=== PATIENT | female | born 1955 | race Caucasian/White ===

== ENCOUNTER → 2017-08-12 07:11 | Outpatient (CLI) | payer OTHER, SELFPAY ==
[2017-08-12 10:15] LABS: Absolute Lymphocyte Count 1.54 X10^3/ul (0.83-4.51); Absolute Neutrophil Count 2.1 X10^3/uL (2.0-7.7); Basophil# 0.01 X10^3/uL; Basophil% 0.2 % (0-1); Eosinophil# 0.08 X10^3/uL; Hematocrit 40.8 % (37-47); Hemoglobin 13.3 g/dl (12.0-15.0); Lymphocyte # 1.54 X10^3/ul (4.0); Lymphocyte % 38.2 % (19-41); Mean Corp Hgb Conc 32.6 g/gl (32-36); Mean Corpuscular Hgb 33.1 pg (27.0-32.0); Mean Corpuscular Volume 101.5 fL (81-99); Mean Platelet Vol. 11.4 fl (6.2-12.0); Monocyte# 0.31 X10^3/uL; Monocyte% 7.7 % (0-10); Neutrophil # 2.09 X10^3/uL (2.7-7.7); Neutrophil % 51.9 % (47-70); Platelet Count 199 K/mm3 (150-450); RBC Distribution Width CV 13.4 % (11.6-14.6); RBC Distribution Width SD 49.9 fl (35.1-43.9); Red Blood Count 4.02 M/mm3 (4.2-5.4)
[2017-08-12 10:28] LABS: POSITIVE COUNT NO; POSITIVE DIFFERENTIAL NO; POSITIVE MORPHOLOGY NO
[2017-08-12 10:31] LABS: ALB/GLOB Ratio 1.1 RATIO (0.9-2.4); AST(SGOT) 30 U/L (15-37); Alanine Aminotransfer ALT/SGPT 46 U/L (13-56); Albumin, Serum 3.6 g/dL (3.2-5.0); Alkaline Phosphatase 87 U/L (45-117); Anion Gap 6 (5-15); BUN 12 mg/dL (7-18); BUN/Creat Ratio 17.5 RATIO (10-20); Calcium,Total 8.5 mg/dL (8.5-10.1); Chloride 109 mmol/L (98-107); Cholesterol 176 mg/dL (200); Creatinine, Serum 0.68 mg/dL (0.55-1.02); EST Glomerular Filtration Rate 92 mL/min (>60); Est Glom Filt Rate - Afr Amer 112 mL/min (>60); Globulin 3.2 g/dL (2.2-4.2); Glucose 102 mg/dL (74-106); High Density Lipoprotein 49 mg/dL; Potassium 3.8 mmol/L (3.5-5.1); Protein, Total 6.8 g/dL (6.4-8.2); Sodium Level 142 mmol/L (136-145); Triglycerides 83 mg/dL; Very Low Density Lipoprotein 17 mg/dL (5-40)
[2017-08-13 16:53] LABS: SJOGREN'S Anti-SS-A test < 0.2 AI (0.0-0.9); SJOGREN'S Anti-SS-B test < 0.2 AI (0.0-0.9)
[2017-08-14 16:02] LABS: ANTINUCLEAR ANTIBODIES DIRECT Negative (Negative)
== END ==
PROVIDERS: Family Provider Internal Medicine; PCP Internal Medicine; Visit Provider Internal Medicine Rheumatology
DX: L40.59 Other psoriatic arthropathy (principal); Z79.899 Other long term (current) drug therapy; L40.8 Other psoriasis; M19.079 Primary osteoarthritis, unspecified ankle and foot; F41.9 Anxiety disorder, unspecified; E78.5 Hyperlipidemia, unspecified; J20.9 Acute bronchitis, unspecified
CPT/HCPCS: 36415; 80053; 80061; 85025; 86038; 86235

== ENCOUNTER → 2017-11-04 08:42 | Outpatient (CLI) | payer OTHER, SELFPAY ==
[2017-11-04 10:11] LABS: Absolute Lymphocyte Count 2.07 X10^3/ul (0.83-4.51); Absolute Neutrophil Count 2.5 X10^3/uL (2.0-7.7); Basophil# 0.01 X10^3/uL; Basophil% 0.2 % (0-1); Eosinophil# 0.06 X10^3/uL; Eosinophils% 1.2 % (0-5); Hematocrit 41.8 % (37-47); Hemoglobin 13.8 g/dl (12.0-15.0); Lymphocyte # 2.07 X10^3/ul (4.0); Lymphocyte % 41.6 % (19-41); Mean Corpuscular Hgb 32.9 pg (27.0-32.0); Mean Corpuscular Volume 99.8 fL (81-99); Mean Platelet Vol. 12.2 fl (6.2-12.0); Monocyte# 0.34 X10^3/uL; Monocyte% 6.8 % (0-10); Neutrophil # 2.49 X10^3/uL (2.7-7.7); Neutrophil % 50.2 % (47-70); Platelet Count 178 K/mm3 (150-450); RBC Distribution Width CV 12.7 % (11.6-14.6); RBC Distribution Width SD 46.2 fl (35.1-43.9); Red Blood Count 4.19 M/mm3 (4.2-5.4)
[2017-11-04 10:14] LABS: POSITIVE COUNT NO; POSITIVE DIFFERENTIAL NO; POSITIVE MORPHOLOGY NO
[2017-11-04 10:23] LABS: ALB/GLOB Ratio 1.2 RATIO (0.9-2.4); AST(SGOT) 24 U/L (15-37); Alanine Aminotransfer ALT/SGPT 29 U/L (13-56); Albumin, Serum 3.8 g/dL (3.2-5.0); Alkaline Phosphatase 90 U/L (45-117); Anion Gap 8 (5-15); BUN 12 mg/dL (7-18); BUN/Creat Ratio 15.2 RATIO (10-20); Calcium,Total 8.7 mg/dL (8.5-10.1); Chloride 111 mmol/L (98-107); Creatinine, Serum 0.79 mg/dL (0.55-1.02); EST Glomerular Filtration Rate 78 mL/min (>60); Est Glom Filt Rate - Afr Amer 95 mL/min (>60); Globulin 3.1 g/dL (2.2-4.2); Glucose 105 mg/dL (74-106); Potassium 3.7 mmol/L (3.5-5.1); Protein, Total 6.9 g/dL (6.4-8.2); Sodium Level 144 mmol/L (136-145)
== END ==
PROVIDERS: Family Provider Internal Medicine; PCP Internal Medicine; Visit Provider Internal Medicine Rheumatology
DX: L40.59 Other psoriatic arthropathy (principal); Z79.899 Other long term (current) drug therapy; L40.8 Other psoriasis; M19.079 Primary osteoarthritis, unspecified ankle and foot; F41.9 Anxiety disorder, unspecified; E78.5 Hyperlipidemia, unspecified; J20.9 Acute bronchitis, unspecified
CPT/HCPCS: 36415; 80053; 85025

== ENCOUNTER → 2018-01-27 09:06 | Outpatient (CLI) | payer OTHER, SELFPAY ==
[2018-01-27 10:55] LABS: Absolute Lymphocyte Count 2.19 X10^3/ul (0.83-4.51); Basophil# 0.01 X10^3/uL; Basophil% 0.2 % (0-1); Eosinophil# 0.05 X10^3/uL; Eosinophils% 0.9 % (0-5); Hematocrit 41.9 % (37-47); Hemoglobin 13.8 g/dl (12.0-15.0); Lymphocyte # 2.19 X10^3/ul (4.0); Lymphocyte % 38.8 % (19-41); Mean Corp Hgb Conc 32.9 g/gl (32-36); Mean Corpuscular Hgb 33.4 pg (27.0-32.0); Mean Corpuscular Volume 101.5 fL (81-99); Monocyte% 7.1 % (0-10); Neutrophil # 2.98 X10^3/uL (2.7-7.7); Neutrophil % 52.8 % (47-70); POSITIVE COUNT NO; POSITIVE DIFFERENTIAL NO; POSITIVE MORPHOLOGY NO; Platelet Count 197 K/mm3 (150-450); RBC Distribution Width CV 12.7 % (11.6-14.6); RBC Distribution Width SD 46.9 fl (35.1-43.9); Red Blood Count 4.13 M/mm3 (4.2-5.4); White Blood Count 5.6 K/mm3 (4.4-11.0)
[2018-01-27 11:34] LABS: ALB/GLOB Ratio 1.2 RATIO (0.9-2.4); AST(SGOT) 21 U/L (15-37); Alanine Aminotransfer ALT/SGPT 26 U/L (13-56); Albumin, Serum 3.8 g/dL (3.2-5.0); Alkaline Phosphatase 85 U/L (45-117); Anion Gap 4 (5-15); BUN 13 mg/dL (7-18); Calcium,Total 8.8 mg/dL (8.5-10.1); Chloride 108 mmol/L (98-107); Creatinine, Serum 0.86 mg/dL (0.55-1.02); EST Glomerular Filtration Rate 70 mL/min (>60); Est Glom Filt Rate - Afr Amer 85 mL/min (>60); Globulin 3.1 g/dL (2.2-4.2); Glucose 106 mg/dL (74-106); Potassium 3.9 mmol/L (3.5-5.1); Protein, Total 6.9 g/dL (6.4-8.2); Sodium Level 144 mmol/L (136-145)
== END ==
PROVIDERS: Family Provider Internal Medicine; PCP Internal Medicine; Visit Provider Internal Medicine Rheumatology
DX: L40.59 Other psoriatic arthropathy (principal); Z79.899 Other long term (current) drug therapy; L40.8 Other psoriasis; M19.079 Primary osteoarthritis, unspecified ankle and foot
CPT/HCPCS: 36415; 80053; 85025

== ENCOUNTER → 2018-04-29 08:47 | Outpatient (CLI) | payer OTHER, SELFPAY ==
[2018-04-29 10:17] LABS: Absolute Lymphocyte Count 2.17 X10^3/ul (0.83-4.51); Absolute Neutrophil Count 7.2 X10^3/uL (2.0-7.7); Basophil# 0.02 X10^3/uL; Basophil% 0.2 % (0-1); Eosinophil# 0.11 X10^3/uL; Eosinophils% 1.1 % (0-5); Hematocrit 41.5 % (37-47); Hemoglobin 13.7 g/dl (12.0-15.0); Lymphocyte # 2.17 X10^3/ul (4.0); Mean Corpuscular Hgb 33.2 pg (27.0-32.0); Mean Corpuscular Volume 100.5 fL (81-99); Mean Platelet Vol. 11.3 fl (6.2-12.0); Monocyte# 0.81 X10^3/uL; Monocyte% 7.8 % (0-10); Neutrophil # 7.22 X10^3/uL (2.7-7.7); Neutrophil % 69.7 % (47-70); POSITIVE COUNT NO; POSITIVE DIFFERENTIAL NO; POSITIVE MORPHOLOGY NO; Platelet Count 220 K/mm3 (150-450); RBC Distribution Width CV 12.5 % (11.6-14.6); RBC Distribution Width SD 45.1 fl (35.1-43.9); Red Blood Count 4.13 M/mm3 (4.2-5.4); White Blood Count 10.4 K/mm3 (4.4-11.0)
[2018-04-29 10:37] LABS: AST(SGOT) 17 U/L (15-37); Alanine Aminotransfer ALT/SGPT 30 U/L (13-56); Albumin, Serum 3.7 g/dL (3.2-5.0); Alkaline Phosphatase 96 U/L (45-117); Anion Gap 8 (5-15); BUN 13 mg/dL (7-18); BUN/Creat Ratio 16.5 RATIO (10-20); Calcium,Total 8.7 mg/dL (8.5-10.1); Chloride 108 mmol/L (98-107); Creatinine, Serum 0.79 mg/dL (0.55-1.02); EST Glomerular Filtration Rate 78 mL/min (>60); Est Glom Filt Rate - Afr Amer 95 mL/min (>60); Globulin 3.6 g/dL (2.2-4.2); Glucose 102 mg/dL (74-106); Potassium 4.2 mmol/L (3.5-5.1); Protein, Total 7.3 g/dL (6.4-8.2); Sodium Level 144 mmol/L (136-145)
== END ==
PROVIDERS: Family Provider Internal Medicine; PCP Internal Medicine; Referring Provider Internal Medicine Rheumatology; Visit Provider Internal Medicine Rheumatology
DX: L40.59 Other psoriatic arthropathy (principal); Z79.899 Other long term (current) drug therapy; L40.8 Other psoriasis; M19.079 Primary osteoarthritis, unspecified ankle and foot; F41.9 Anxiety disorder, unspecified; E78.5 Hyperlipidemia, unspecified; J20.9 Acute bronchitis, unspecified
CPT/HCPCS: 36415; 80053; 85025

== ENCOUNTER → 2022-03-05 | Outpatient (CLI) | payer MEDICARE, SELFPAY ==
[2022-03-05 15:29] LABS: Absolute Lymphocyte Count 2.46 X10^3/uL (0.83-4.51); Absolute Neutrophil Count 4.8 X10^3/uL (2.0-7.7); Basophil# 0.04 X10^3/uL; Basophil% 0.5 % (0-1); Eosinophil# 0.12 X10^3/uL; Eosinophils% 1.5 % (0-5); Hematocrit 41.5 % (37-47); Hemoglobin 13.6 g/dL (12.0-15.0); Lymphocyte # 2.46 X10^3/ul (0.83-4.51); Lymphocyte % 30.6 % (19-41); Mean Corp Hgb Conc 32.8 g/dL (32-36); Mean Corpuscular Hgb 31.6 pg (27.0-32.0); Mean Corpuscular Volume 96.5 fL (81-99); Mean Platelet Vol. 11.8 fl (6.2-12.0); Monocyte# 0.62 X10^3/uL; Monocyte% 7.7 % (0-10); NRBC Flagged by Analyzer 0 % (0-5); Neutrophil # 4.77 X10^3/uL (2.7-7.7); Neutrophil % 59.3 % (47-70); Platelet Count 226 K/mm3 (150-450); RBC Distribution Width CV 12.8 % (11.6-14.6); RBC Distribution Width SD 45.5 fl (35.1-43.9)
[2022-03-05 15:32] LABS: Erythrocyte Sedimentation Rate 9 mm/hr (0-30)
[2022-03-05 15:50] LABS: AST(SGOT) 17 U/L (15-37); Alanine Aminotransfer ALT/SGPT 21 U/L (13-56); Albumin, Serum 3.7 g/dL (3.2-5.0); Alkaline Phosphatase 86 U/L (45-117); Anion Gap 5 (5-15); BUN 17 mg/dL (7-18); BUN/Creat Ratio 19.1 RATIO (10-20); CRP 3.47 mg/L (0.0-3.0); Calcium,Total 9.1 mg/dL (8.5-10.1); Chloride 106 mmol/L (98-107); Creatinine, Serum 0.89 mg/dL (0.55-1.02); EST Glomerular Filtration Rate 67 mL/min (>60); Est Glom Filt Rate - Afr Amer 82 mL/min (>60); Globulin 3.6 g/dL (2.2-4.2); Glucose 107 mg/dL (74-106); Potassium 3.7 mmol/L (3.5-5.1); Protein, Total 7.3 g/dL (6.4-8.2); Rheumatoid Factor < 10.0 IU/mL (<15); Sodium Level 142 mmol/L (136-145)
[2022-03-06 08:43] LABS: Hepatitis B Surface Antibody Non-Reactive; Hepatitis B Surface Antigen Non-Reactive (Nonreactive); Hepatitis C Antibody Non-Reactive (Nonreactive)
[2022-03-07 16:10] LABS: ANTINUCLEAR ANTIBODIES DIRECT Negative (Negative)
== END | disposition home or self-care (01) ==
PROVIDERS: PCP Internal Medicine; Referring Provider Internal Medicine Rheumatology; Visit Provider Internal Medicine Rheumatology
DX: L40.59 Other psoriatic arthropathy (principal); Z79.899 Other long term (current) drug therapy; L40.8 Other psoriasis; M79.7 Fibromyalgia; F41.9 Anxiety disorder, unspecified; E78.5 Hyperlipidemia, unspecified; I10 Essential (primary) hypertension; E03.9 Hypothyroidism, unspecified; R42 Dizziness and giddiness
CPT/HCPCS: 36415; 80053; 85025; 85652; 86038; 86140; 86431; 86706; 86803; 87340

== ENCOUNTER → 2022-05-06 | Outpatient (CLI) | payer MEDICARE, SELFPAY ==
[2022-05-06 15:28] LABS: Absolute Lymphocyte Count 2.35 X10^3/uL (0.83-4.51); Absolute Neutrophil Count 3.8 X10^3/uL (2.0-7.7); Basophil# 0.06 X10^3/uL; Basophil% 0.9 % (0-1); Eosinophil# 0.09 X10^3/uL; Eosinophils% 1.3 % (0-5); Hematocrit 40.5 % (37-47); Hemoglobin 13.3 g/dL (12.0-15.0); Lymphocyte # 2.35 X10^3/ul (0.83-4.51); Lymphocyte % 34.3 % (19-41); Mean Corp Hgb Conc 32.8 g/dL (32-36); Mean Corpuscular Hgb 32.4 pg (27.0-32.0); Mean Corpuscular Volume 98.5 fL (81-99); Mean Platelet Vol. 12.1 fl (6.2-12.0); Monocyte# 0.59 X10^3/uL; Monocyte% 8.6 % (0-10); NRBC Flagged by Analyzer 0 % (0-5); Neutrophil # 3.75 X10^3/uL (2.7-7.7); Neutrophil % 54.6 % (47-70); Platelet Count 227 K/mm3 (150-450); RBC Distribution Width CV 13.6 % (11.6-14.6); RBC Distribution Width SD 48.8 fl (35.1-43.9); Red Blood Count 4.11 M/mm3 (4.2-5.4); White Blood Count 6.9 K/mm3 (4.4-11.0)
[2022-05-06 15:56] LABS: ALB/GLOB Ratio 1.1 RATIO (0.9-2.4); AST(SGOT) 18 U/L (15-37); Alanine Aminotransfer ALT/SGPT 23 U/L (13-56); Albumin, Serum 3.7 g/dL (3.2-5.0); Alkaline Phosphatase 77 U/L (45-117); Anion Gap 7 (5-15); BUN 16 mg/dL (7-18); BUN/Creat Ratio 17.5 RATIO (10-20); Calcium,Total 9.2 mg/dL (8.5-10.1); Chloride 105 mmol/L (98-107); Creatinine, Serum 0.91 mg/dL (0.55-1.02); EST Glomerular Filtration Rate 65 mL/min (>60); Est Glom Filt Rate - Afr Amer 79 mL/min (>60); Globulin 3.4 g/dL (2.2-4.2); Glucose 88 mg/dL (74-106); Potassium 3.4 mmol/L (3.5-5.1); Protein, Total 7.1 g/dL (6.4-8.2); Sodium Level 142 mmol/L (136-145)
== END | disposition home or self-care (01) ==
PROVIDERS: PCP Physician Assistant Medical; Referring Provider Internal Medicine Rheumatology; Visit Provider Internal Medicine Rheumatology
DX: L40.59 Other psoriatic arthropathy (principal); Z79.899 Other long term (current) drug therapy; L40.8 Other psoriasis; M79.7 Fibromyalgia; F41.9 Anxiety disorder, unspecified; E78.5 Hyperlipidemia, unspecified; I10 Essential (primary) hypertension; E03.9 Hypothyroidism, unspecified; R42 Dizziness and giddiness
CPT/HCPCS: 36415; 80053; 85025

== ENCOUNTER → 2022-06-25 | Outpatient (CLI) | payer MEDICARE, SELFPAY ==
[2022-06-25 18:05] LABS: Absolute Lymphocyte Count 2.58 X10^3/uL (0.83-4.51); Basophil# 0.03 X10^3/uL; Basophil% 0.4 % (0-1); Eosinophil# 0.17 X10^3/uL; Eosinophils% 2.4 % (0-5); Hematocrit 39.3 % (37-47); Hemoglobin 12.9 g/dL (12.0-15.0); Lymphocyte # 2.58 X10^3/ul (0.83-4.51); Mean Corp Hgb Conc 32.8 g/dL (32-36); Mean Corpuscular Hgb 33.1 pg (27.0-32.0); Mean Corpuscular Volume 100.8 fL (81-99); Mean Platelet Vol. 11.7 fl (6.2-12.0); Monocyte# 0.41 X10^3/uL; Monocyte% 5.7 % (0-10); NRBC Flagged by Analyzer 0 % (0-5); Neutrophil # 3.95 X10^3/uL (2.7-7.7); Neutrophil % 55.2 % (47-70); Platelet Count 242 K/mm3 (150-450); RBC Distribution Width CV 13.4 % (11.6-14.6); RBC Distribution Width SD 49.5 fl (35.1-43.9); White Blood Count 7.2 K/mm3 (4.4-11.0)
[2022-06-25 18:27] LABS: ALB/GLOB Ratio 1.1 RATIO (0.9-2.4); AST(SGOT) 15 U/L (15-37); Alanine Aminotransfer ALT/SGPT 22 U/L (13-56); Albumin, Serum 3.5 g/dL (3.2-5.0); Alkaline Phosphatase 82 U/L (45-117); Anion Gap 5 (5-15); BUN 14 mg/dL (7-18); BUN/Creat Ratio 16.1 RATIO (10-20); Calcium,Total 9.2 mg/dL (8.5-10.1); Chloride 106 mmol/L (98-107); Creatinine, Serum 0.87 mg/dL (0.55-1.02); EST Glomerular Filtration Rate 69 mL/min (>60); Est Glom Filt Rate - Afr Amer 83 mL/min (>60); Globulin 3.1 g/dL (2.2-4.2); Glucose 182 mg/dL (74-106); Potassium 4.2 mmol/L (3.5-5.1); Protein, Total 6.6 g/dL (6.4-8.2); Sodium Level 141 mmol/L (136-145)
== END | disposition home or self-care (01) ==
LOC: MTLAB 14:53
PROVIDERS: PCP Physician Assistant Medical; Referring Provider Internal Medicine Rheumatology; Visit Provider Internal Medicine Rheumatology
DX: L40.59 Other psoriatic arthropathy (principal); L40.8 Other psoriasis; Z79.899 Other long term (current) drug therapy
CPT/HCPCS: 36415; 80053; 85025

== ENCOUNTER → 2022-08-26 | Outpatient (CLI) | payer MEDICARE, SELFPAY ==
[2022-08-26 15:10] LABS: Absolute Lymphocyte Count 1.71 X10^3/uL (0.83-4.51); Absolute Neutrophil Count 3.9 X10^3/uL (2.0-7.7); Basophil# 0.04 X10^3/uL; Basophil% 0.7 % (0-1); Eosinophil# 0.09 X10^3/uL; Eosinophils% 1.5 % (0-5); Hematocrit 40.8 % (37-47); Hemoglobin 13.2 g/dL (12.0-15.0); Lymphocyte # 1.71 X10^3/ul (0.83-4.51); Lymphocyte % 27.8 % (19-41); Mean Corp Hgb Conc 32.4 g/dL (32-36); Mean Corpuscular Hgb 32.9 pg (27.0-32.0); Mean Corpuscular Volume 101.7 fL (81-99); Mean Platelet Vol. 11.5 fl (6.2-12.0); Monocyte# 0.43 X10^3/uL; NRBC Flagged by Analyzer 0.3 % (0-5); Neutrophil # 3.86 X10^3/uL (2.7-7.7); Neutrophil % 62.7 % (47-70); Platelet Count 235 K/mm3 (150-450); RBC Distribution Width CV 13.2 % (11.6-14.6); RBC Distribution Width SD 49.7 fl (35.1-43.9); Red Blood Count 4.01 M/mm3 (4.2-5.4); White Blood Count 6.2 K/mm3 (4.4-11.0)
[2022-08-26 15:35] LABS: AST(SGOT) 16 U/L (15-37); Alanine Aminotransfer ALT/SGPT 23 U/L (13-56); Albumin, Serum 3.6 g/dL (3.2-5.0); Alkaline Phosphatase 74 U/L (45-117); Anion Gap 5 (5-15); BUN 15 mg/dL (7-18); BUN/Creat Ratio 15.9 RATIO (10-20); Calcium,Total 9.9 mg/dL (8.5-10.1); Chloride 105 mmol/L (98-107); Creatinine, Serum 0.94 mg/dL (0.55-1.02); EST Glomerular Filtration Rate 63 mL/min (>60); Est Glom Filt Rate - Afr Amer 76 mL/min (>60); Globulin 3.5 g/dL (2.2-4.2); Glucose 169 mg/dL (74-106); Potassium 4.1 mmol/L (3.5-5.1); Protein, Total 7.1 g/dL (6.4-8.2); Sodium Level 141 mmol/L (136-145)
== END | disposition home or self-care (01) ==
PROVIDERS: PCP Physician Assistant Medical; Visit Provider Internal Medicine Rheumatology
DX: L40.59 Other psoriatic arthropathy (principal); Z79.899 Other long term (current) drug therapy; L40.8 Other psoriasis; M79.7 Fibromyalgia; F41.9 Anxiety disorder, unspecified; E78.5 Hyperlipidemia, unspecified; I10 Essential (primary) hypertension; E03.9 Hypothyroidism, unspecified; R42 Dizziness and giddiness
CPT/HCPCS: 36415; 80053; 85025

== ENCOUNTER → 2022-10-22 | Outpatient (CLI) | payer MEDICARE, SELFPAY ==
[2022-10-22 12:20] LABS: Absolute Lymphocyte Count 2.11 X10^3/uL (0.83-4.51); Absolute Neutrophil Count 4.6 X10^3/uL (2.0-7.7); Basophil# 0.06 X10^3/uL; Basophil% 0.8 % (0-1); Eosinophils% 1.4 % (0-5); Hematocrit 41.6 % (37-47); Hemoglobin 13.6 g/dL (12.0-15.0); Lymphocyte # 2.11 X10^3/ul (0.83-4.51); Lymphocyte % 28.8 % (19-41); Mean Corp Hgb Conc 32.7 g/dL (32-36); Mean Corpuscular Hgb 33.4 pg (27.0-32.0); Mean Corpuscular Volume 102.2 fL (81-99); Mean Platelet Vol. 11.7 fl (6.2-12.0); Monocyte# 0.38 X10^3/uL; Monocyte% 5.2 % (0-10); NRBC Flagged by Analyzer 0 % (0-5); Neutrophil # 4.63 X10^3/uL (2.7-7.7); Neutrophil % 63.3 % (47-70); Platelet Count 249 K/mm3 (150-450); RBC Distribution Width SD 48.8 fl (35.1-43.9); Red Blood Count 4.07 M/mm3 (4.2-5.4); White Blood Count 7.3 K/mm3 (4.4-11.0)
[2022-10-22 12:46] LABS: Albumin, Serum 3.5 g/dL (3.2-5.0); BUN 13 mg/dL (7-18); BUN/Creat Ratio 13.4 RATIO (10-20); Creatinine, Serum 0.97 mg/dL (0.55-1.02); EST Glomerular Filtration Rate 61 mL/min (>60); Est Glom Filt Rate - Afr Amer 74 mL/min (>60); Globulin 3.5 g/dL (2.2-4.2); Glucose 146 mg/dL (74-106)
[2022-10-22 12:47] LABS: AST(SGOT) 17 U/L (15-37); Alanine Aminotransfer ALT/SGPT 25 U/L (13-56); Alkaline Phosphatase 91 U/L (45-117); Anion Gap 6 (5-15); Calcium,Total 9.4 mg/dL (8.5-10.1); Chloride 107 mmol/L (98-107); Potassium 3.4 mmol/L (3.5-5.1); Sodium Level 140 mmol/L (136-145)
== END | disposition home or self-care (01) ==
LOC: MTLAB 10:41
PROVIDERS: PCP Physician Assistant Medical; Referring Provider Internal Medicine Rheumatology; Visit Provider Internal Medicine Rheumatology
DX: L40.59 Other psoriatic arthropathy (principal); Z79.899 Other long term (current) drug therapy
CPT/HCPCS: 36415; 80053; 85025

== ENCOUNTER → 2023-01-07 | Outpatient (CLI) | payer MEDICARE, SELFPAY ==
[2023-01-07 15:16] LABS: Absolute Lymphocyte Count 2.31 X10^3/uL (0.83-4.51); Basophil# 0.04 X10^3/uL; Basophil% 0.5 % (0-1); Eosinophils% 1.2 % (0-5); Hematocrit 41.3 % (37-47); Hemoglobin 13.3 g/dL (12.0-15.0); Lymphocyte # 2.31 X10^3/ul (0.83-4.51); Lymphocyte % 28.8 % (19-41); Mean Corp Hgb Conc 32.2 g/dL (32-36); Mean Corpuscular Hgb 32.8 pg (27.0-32.0); Mean Platelet Vol. 12.1 fl (6.2-12.0); Monocyte% 6.2 % (0-10); NRBC Flagged by Analyzer 0 % (0-5); Neutrophil # 5.04 X10^3/uL (2.7-7.7); Neutrophil % 62.8 % (47-70); Platelet Count 242 K/mm3 (150-450); RBC Distribution Width CV 13.1 % (11.6-14.6); RBC Distribution Width SD 48.2 fl (35.1-43.9); Red Blood Count 4.05 M/mm3 (4.2-5.4)
[2023-01-07 15:35] LABS: AST(SGOT) 23 U/L (15-37); Alanine Aminotransfer ALT/SGPT 24 U/L (13-56); Albumin, Serum 3.6 g/dL (3.2-5.0); Alkaline Phosphatase 92 U/L (45-117); Anion Gap 6 (5-15); BUN 13 mg/dL (7-18); BUN/Creat Ratio 14.6 RATIO (10-20); Calcium,Total 9.1 mg/dL (8.5-10.1); Chloride 108 mmol/L (98-107); Creatinine, Serum 0.89 mg/dL (0.55-1.02); EST Glomerular Filtration Rate 67 mL/min (>60); Est Glom Filt Rate - Afr Amer 81 mL/min (>60); Globulin 3.5 g/dL (2.2-4.2); Glucose 101 mg/dL (74-106); Potassium 3.8 mmol/L (3.5-5.1); Protein, Total 7.1 g/dL (6.4-8.2); Sodium Level 141 mmol/L (136-145)
== END | disposition home or self-care (01) ==
LOC: MTLAB 13:22
PROVIDERS: PCP Physician Assistant Medical; Referring Provider Internal Medicine Rheumatology; Visit Provider Internal Medicine Rheumatology
DX: L40.59 Other psoriatic arthropathy (principal); Z79.899 Other long term (current) drug therapy
CPT/HCPCS: 36415; 80053; 85025

== ENCOUNTER → 2023-04-04 | Outpatient (CLI) | payer MEDICARE, SELFPAY ==
[2023-04-04 10:03] LABS: Absolute Lymphocyte Count 1.38 X10^3/uL (0.83-4.51); Absolute Neutrophil Count 4.7 X10^3/uL (2.0-7.7); Basophil# 0.04 X10^3/uL; Basophil% 0.6 % (0-1); Eosinophil# 0.13 X10^3/uL; Eosinophils% 1.9 % (0-5); Hematocrit 41.5 % (37-47); Hemoglobin 13.2 g/dL (12.0-15.0); Lymphocyte # 1.38 X10^3/ul (0.83-4.51); Lymphocyte % 20.2 % (19-41); Mean Corp Hgb Conc 31.8 g/dL (32-36); Mean Corpuscular Hgb 32.8 pg (27.0-32.0); Mean Platelet Vol. 11.5 fl (6.2-12.0); Monocyte# 0.56 X10^3/uL; Monocyte% 8.2 % (0-10); NRBC Flagged by Analyzer 0 % (0-5); Neutrophil # 4.69 X10^3/uL (2.7-7.7); Neutrophil % 68.8 % (47-70); Platelet Count 228 K/mm3 (150-450); RBC Distribution Width CV 13.5 % (11.6-14.6); RBC Distribution Width SD 50.8 fl (35.1-43.9); Red Blood Count 4.03 M/mm3 (4.2-5.4); White Blood Count 6.8 K/mm3 (4.4-11.0)
[2023-04-04 10:43] LABS: AST(SGOT) 16 U/L (15-37); Alanine Aminotransfer ALT/SGPT 27 U/L (13-56); Albumin, Serum 3.5 g/dL (3.2-5.0); Alkaline Phosphatase 85 U/L (45-117); Anion Gap 2 (5-15); BUN 11 mg/dL (7-18); BUN/Creat Ratio 14.3 RATIO (10-20); Chloride 109 mmol/L (98-107); Creatinine, Serum 0.77 mg/dL (0.55-1.02); EST Glomerular Filtration Rate 79 mL/min (>60); Est Glom Filt Rate - Afr Amer 96 mL/min (>60); Globulin 3.4 g/dL (2.2-4.2); Glucose 130 mg/dL (74-106); Potassium 4.3 mmol/L (3.5-5.1); Protein, Total 6.9 g/dL (6.4-8.2); Sodium Level 141 mmol/L (136-145)
== END | disposition home or self-care (01) ==
LOC: MTLAB 09:16
PROVIDERS: PCP Physician Assistant Medical; Referring Provider Internal Medicine Rheumatology; Visit Provider Internal Medicine Rheumatology
DX: L40.59 Other psoriatic arthropathy (principal); Z79.899 Other long term (current) drug therapy; L40.8 Other psoriasis; M79.7 Fibromyalgia
CPT/HCPCS: 36415; 80053; 85025

== ENCOUNTER → 2023-07-07 | Outpatient (CLI) | payer MEDICARE, SELFPAY ==
--- OUTSIDE RECORDS SUMMARY | 2023-07-07 15:17 | XMS RPT_ITS | CCD ---
Author Name Unknown Address [address] [place] [address] Organization [facility] Care Team Providers Care Liquor Department Manager Name Role Phone WHIT, ANTONIOLUCINA FULTON Unavailable Unavailab le Zarrabi, Nadeen Unavailable Unavailable Abbass, Vicente Unavailable Unavailable Zarrabi, Nadeen Unavailable Unavailable GRETTA, CANDELARIA B Attending Unavailable GRETTA, CANDELARIA B Primary Care Unavailable GRETTA, CANDELARIA B Admitting Unavailable GRETTA, CANDELARIA B Attending Unavailable GRETTA, CANDELARIA B Primary Care Unavailable GRETTA, CANDELARIA B Admitting Unavailable GRETTA, CANDELARIA B Attending Unavailable GRETTA, CANDELARIA B Primary Care Unavailable GRETTA, CANDELARIA B Admitting Unavailable GRETTA, CANDELARIA B Attending Unavailable GRETTA, CANDELARIA B Primary Care Unavailable GRETTA, CANDELARIA B Admitting Unavailable GRETTA, CANDELARIA B Admitting Unavailable GRETTA, CANDELARIA B Attending Unavailable GRETTA, CANDELARIA B Primary Care Unavailable GRETTA, CANDELARIA B Admitting Unavailable GRETTA, CANDELARIA B Attending Unavailable GRETTA, CANDELARIA B Primary Care Unavailable GRETTA, CANDELARIA B Admitting Unavailable GRETTA, CANDELARIA B Attending Unavailable GRETTA, CANDELARIA B Primary Care Unavailable GRETTA, CANDELARIA B Admitting Unavailable RGETTA, CANDELARIA B Attending Unavailable GRETTA, CANDELARIA B Primary Care Unavailable Zarrabi, Nadeen Unavailable Unavailable Gretta, Candelaria Unavailable Unavailable Gretta, Candelaria B Unavailable Unavailable Zarrabi, Nadeen Unavailable Unavailable Bergoo, Candelaria B Unavailable [phone] Unavailable Unavailable Unavailable Unavailable Ms. Kin Glynnhel Janny Referring Unav ailable Gretta, Ms. Candelaria Soliman Primary Care Unav ailable Gretta, Ms. Candelaria Soliman Attending Unav ailable Berg[place], Ms. Candelaria Soliman Referring Unav ailable Gretta, Ms. Candelaria Soliman Primary Care Unav ailable Gretta, Ms. Candelaria Soliman Attending Unav ailable Candelaria Glynn PA-C Primary Care Provider Gretta, Ms. Candelaria Soliman Attending Unav ailjerel Gretta, Ms. Candelaria Soliman Primary Care Unav ailCANDELARIA Coe Primary Care Unavailable CANDELARIA GLYNN Attending Unavailable CANDELARIA GLYNN Primary Care Unavailable CANDELARIA GLYNN Attending Unavailable CANDELARIA GLYNN Primary Care Unavailable Allergies Allergy Classification Reported Allergen(s) Allergy Type Date of Onset Reaction(s) Facility Serotonin-1b and Serotonin-1d Receptor Agonists (1 source) SUMAtriptan; Translations: [Imitrex TABS] Drug Allergy Other [facility] Corporate Work Phone: (1 source) SUMAtriptan; Translations: [Imitrex] Drug Allergy [facility] Repository (16 sources) SUMAtriptan; Translations: [Imitrex TABS] Drug Allergy 08-03-2022 [facility] (2 sources) SUMAtriptan; Translations: [SUMATRIPTAN] Drug Allergy 08-03-2022 [facility] Repository Medications Current Medications Medication Drug Class(es) Dates Sig (Normalized) Sig (Original) amLODIPine 10 mg oral tablet (18 sources) Dihydropyridine Calcium Channel Chip take 1 tablet by mouth once daily amLODIPine (Norvasc) 10 mg tablet Take 1 tablet (10 mg) by mouth once daily. 0 Active Completed/Discontinued Medications Medication Drug Class(es) Dates Sig (Normalized) Sig (Original) 0.8 ml adalimumab 50 mg/ml prefilled syringe (1 source) Tumor Necrosis Factor Chip Humira 40 MG/0.8ML Subcutaneous Prefilled Syringe Kit q2wks. Dr. Barlow. Refills: 0 DO Active amoxicillin 500 mg oral capsule (2 sources) Penicillin-class Antibacterial Start: 02-04-2022 take 1 capsule by mouth three times daily Amoxicillin 500 MG Oral Capsule TAKE 1 CAPSULE BY MOUTH THREE TIMES DAILY UNTIL GONE Quantity: 21 Refills: 0 Ordered: 04-Feb-2022 DO Start : 04-Feb-2022 Complete ascorbic acid 60 mg / beta carotene 5000 unt / copper sulfate 40 mg / dl-alpha tocopheryl acetate 30 unt / sodium selenite 0.04 mg / zinc oxide 40 mg oral tablet (1 source) Vitamin C Start: 11-10-2014 Vitamins/Minerals Oral Tablet Refills: 0 Start : 10-Nov-2014 Active betamethasone 0.5 mg/ml / clotrimazole 10 mg/ml topical cream (1 source) Azole Antifungal, Corticosteroid Start: 04-03-2020 Clotrimazole-Beta methasone 1-0.05 % External Cream APPLY 1 INCH Twice daily PRN rash Quantity: 1 Refills: 1 Candelaria Glynn PA-C Start : 03-Apr-2020 Active 45 GM Tube Eldercaps CAPS (12 sources) Eldercaps CAPS TAKE 1 CAPSULE Daily Quantity: 0 Refills: 0 Ordered: 05-Mar-2021 DO Active Glucosamine Chond Cmp Advanced TABS (8 sources) Glucosamine Cam d Cmp Advanced TABS Quantity: 0 Refills: 0 Ordered: 08-Oct-2021 DO Active omega-3 acid ethyl esters (intermediate) 1000 mg oral capsule (1 source) Fish Oil 1000 MG Oral Capsule Refills: 0 DO Active predniSONE 10 mg oral tablet (2 sources) Start: 03-26-2022 predniSONE 10 MG Oral Tablet Quantity: 30 Refills: 0 Ordered: 26-Mar-2022 DO Start : 26-Mar-2022 Complete Vitamin C TABS (12 sources) Vitamin C TABS TAKE 1 TABLET DAILY. Quantity: 0 Refills: 0 Ordered: 05-Mar-2021 DO Active Vitamin E TABS (12 sources) Vitamin E TABS TAKE 1 TABLET DAILY. Quantity: 0 Refills: 0 Ordered: 05-Mar-2021 DO Active Vitamins/Minerals Oral Tablet (2 sources) Start: 11-10-2014 Vitamins/Minerals Oral Tablet Refills: 0 Start : 10-Nov-2014 Active Problems Active Problems Problem Classification Problem Date Documented Da te Episodic/Chronic Anxiety disorders (20 sources) Anxiety disorder due to a general medical condition; Translations: [Anxiety] Onset: 08-03-2022 08-03-2022 Chronic Anxiety disorders (14 sources) Anxiety disorder due to a general medical condition; Translations: [Anxiety disorder in conditions classified elsewhere] Onset: 08-03-2022 08-03-2022 Episodic Conditions associated with dizziness or vertigo (1 source) Dizziness and giddiness; Translations: [Dizziness and giddiness] Onset: 10-15-2017 Episodic Conditions associated with dizziness or vertigo (3 sources) Conditions associated with dizziness or vertigo Onset: 10-15-2017 Diabetes mellitus with complications (7 sources) Type 2 diabetes mellitus; Translations: [Diabetes mellitus without mention of complication, type II or unspecified type, not stated as uncontrolled] Onset: 08-03-2022 10-07-2022 Chronic Disorders of lipid metabolism (20 sources) Hypertriglyceridemi a; Translations: [Hypercholesterolem ia] Onset: 08-03-2022 Resolved: 10-07-2022 10-07-2022 Chronic Essential hypertension (19 sources) Benign essential hypertension; Translations: [Benign essential hypertension] Onset: 08-03-2022 10-07-2022 Chronic Headache; including migraine (17 sources) Migraine; Translations: [Migraine, unspecified, without mention of intractable migraine without mention of status migrainosus] Onset: 08-03-2022 08-03-2022 Chronic Immunizations and screening for infectious disease (20 sources) Patient encounter status; Translations: [Other specified vaccination] 10-07-2022 Episodic Joint disorders and dislocations; trauma-related (19 sources) Ankle - recurrent dislocation; Translations: [Recurrent dislocation of joint, ankle and foot] Onset: 08-03-2022 08-03-2022 Episodic Malaise and fatigue (20 sources) Malaise and fatigue; Translations: [Other malaise and fatigue] Onset: 08-03-2022 10-07-2022 Episodic Other inflammatory condition of skin (11 sources) Psoriasis with arthropathy; Translations: [Psoriatic arthropathy] Onset: 08-03-2022 08-03-2022 Chronic Past or Other Problems Problem Classification Problem Date Documented Da te Episodic/Chronic Administrative/social admission (2 sources) Other specified counseling; Translations: [Other specified counseling] Onset: 10-07-2022 Episodic Diabetes mellitus without complication (20 sources) Hyperglycemia; Translations: [Impaired glucose tolerance] Onset: 08-03-2022 Resolved: 10-07-2022 10-07-2022 Episodic Nutritional deficiencies (17 sources) Decreased vitamin B12 level; Translations: [Other B-complex deficiencies] Onset: 08-03-2022 10-07-2022 Episodic Other nutritional; endocrine; and metabolic disorders (16 sources) Overweight; Translations: [Overweight] Onset: 08-03-2022 10-07-2022 Episodic Other nutritional; endocrine; and metabolic disorders (1 source) Overweight; Translations: [Overweight] Onset: 08-03-2022 Episodic Other skin disorders (15 sources) Eruption; Translations: [Rash and other nonspecific skin eruption] Onset: 08-03-2022 Resolved: 10-07-2022 10-07-2022 Episodic Other skin disorders (4 sources) Nonscarring hair loss, unspecified; Translations: [Nonscarring hair loss, unspecified] Onset: 10-07-2022 Episodic Residual codes; unclassified (13 sources) Influenza vaccination declined; Translations: [Vaccination not carried out because of patient refusal] Onset: 03-05-2021 Episodic Results Test Name Value Interpretation Reference Range Facil ity Vital Signs Date Time Vital Sign Value Performing Clinician Faci lity 10-07-2022 12:42-0400 Body mass index (BMI) [Ratio] 27.41 kg/m2 Candelaria Glynn PA-C Work Phone: [facility] 10-07-2022 12:42-0400 Body weight 86.64 kg Candelaria Glynn PA-C Work Phone: [facility] 10-07-2022 12:42-0400 Diastolic blood pressure 73 mm[Hg] Candelaria Glynn PA-C Work Phone: [facility] 10-07-2022 12:42-0400 Heart rate 67 /min Candelaria Glynn PA-C Work Phone: [facility] 10-07-2022 12:42-0400 SaO2% (BldA) [Mass fraction] 97 % Candelaria Glynn PA-C Work Phone: [facility] 10-07-2022 12:42-0400 Systolic blood pressure 114 mm[Hg] Candelaria MATAC Work Phone: [facility] 04-08-2022 12:40-0400 Body height 177.8 cm Candelaria Glynn Work Phone: [facility] Work Phone: 04-08-2022 12:40-0400 Body mass index (BMI) [Ratio] 27.26 kg/m2 Candelaria Glynn Work Phone: [facility] Work Phone: 04-08-2022 12:40-0400 Body surface area Derived from formula 2.04 m2 Candelaria Kristine Gretta Work Phone: [facility] Work Phone: 04-08-2022 12:40-0400 Body weight 86.18 kg Candelaria Glynn Work Phone: [facility] Work Phone: 04-08-2022 12:40-0400 Diastolic blood pressure 63 mm[Hg] Candelaria Glynn Work Phone: [facility] Work Phone: 04-08-2022 12:40-0400 Heart rate 69 /min Candelaria Glynn Work Phone: [facility] Work Phone: 04-08-2022 12:40-0400 Systolic blood pressure 118 mm[Hg] Candelaria Glynn Work Phone: [facility] Work Phone: 10-08-2021 12:58-0400 Body height 177.8 cm Candelaria Glynn Work Phone: [facility] Work Phone: 10-08-2021 12:58-0400 Body mass index (BMI) [Ratio] 26.98 kg/m2 Candelaria Glynn Work Phone: [facility] Work Phone: 10-08-2021 12:58-0400 Body surface area Derived from formula 2.03 m2 Candelaria Glynn Work Phone: [facility] Work Phone: 10-08-2021 12:58-0400 Body weight 85.28 kg Candelaria Glynn Work Phone: [facility] Work Phone: 10-08-2021 12:58-0400 Diastolic blood pressure 70 mm[Hg] Candelaria Glynn Work Phone: [facility] Work Phone: 10-08-2021 12:58-0400 Heart rate 71 /min Candelaria Glynn Work Phone: [facility] Work Phone: 10-08-2021 12:58-0400 SaO2% (BldA) [Mass fraction] 100 % Candelaria Glynn Work Phone: [facility] Work Phone: 10-08-2021 12:58-0400 Systolic blood pressure 130 mm[Hg] Candelaria Glynn Work Phone: [facility] Work Phone: 03-05-2021 09:18-0400 Body height 177.8 cm Candelaria Glynn Work Phone: [facility] Work Phone: 03-05-2021 09:18-0400 Body mass index (BMI) [Ratio] 27.69 kg/m2 Candelaria Glynn Work Phone: [facility] Work Phone: 03-05-2021 09:18-0400 Body surface area Derived from formula 2.06 m2 Candelaria Glynn Work Phone: [facility] Work Phone: 03-05-2021 09:18-0400 Body weight 87.54 kg Candelaria Glynn Work Phone: [facility] Work Phone: 03-05-2021 09:18-0400 Diastolic blood pressure 72 mm[Hg] Candelaria Glynn Work Phone: [facility] Work Phone: 03-05-2021 09:18-0400 Heart rate 72 /min Candelaria Glynn Work Phone: [facility] Work Phone: 03-05-2021 09:18-0400 Systolic blood pressure 124 mm[Hg] Candelaria Glynn Work Phone: [facility] Work Phone: 04-03-2020 14:45-0400 BMI (Body Mass Index) 27.55 kg/m2 Candelaria Glynn [facility] Work Phone: 04-03-2020 14:45-0400 Body weight 87.[address] [facility] Work Phone: 04-03-2020 14:45-0400 BP Diastolic 80 mm[Hg] Candelaria Glynn [facility] Work Phone: 04-03-2020 14:45-0400 BP Systolic 148 mm[Hg] Candelaria Glynn [facility] Work Phone: 04-03-2020 14:45-0400 BSA (Body Surface Area) 2.[address] [facility] Work Phone: 04-03-2020 14:45-0400 Height 177.[address] [facility] Work Phone: 04-03-2020 14:45-0400 Pulse (Heart Rate) 68 /min Candelaria Glynn [facility] Work Phone: Encounters Encounter Date Encounter Type Care Provider Facility Start: 04-14-2023 End: 04-14-2023 ambulatory CANDELARIA [facility] Start: 04-04-2023 End: 04-05-2023 ambulatory [facility] Start: 10-10-2022 ambulatory Ms. Candelaria alvarado [place] Facility:[id number] Start: 10-07-2022 End: 10-07-2022 ambulatory CANDELARIA B [facility] Start: 10-07-2022 End: 10-07-2022 Encounter for general adult medical examination without abnormal findings [facility] Start: 10-07-2022 End: 10-07-2022 Assay of hemosiderin, quant Candelaria Glynn PA-C Work Phone: [facility] Work Phone: Start: 10-07-2022 End: 10-07-2022 Patient encounter procedure Candelaria Glynn PA-C Work Phone: [facility] Procedures Date Procedure Procedure Detail Performing Clinician Start: 04-04-2023 CBC W Auto Differential panel - Blood CANDELARIA GLYNN Start: 04-04-2023 Comprehensive metabolic 2000 panel - Serum or Plasma CANDELARIA GLYNN Start: 04-04-2023 Cyanocobalamin vitamin b-12 CANDELARIA GLYNN Start: 04-04-2023 Ferritin [Mass/volume] in Serum or Plasma CANDELARIA GLYNN Start: 04-04-2023 Hemoglobin A1c/Hemoglobin.total in Blood CANDELARIA GLYNN Start: 04-04-2023 IRON AND TIBC CANDELARIA GLYNN Start: 04-04-2023 Magnesium [Mass/volume] in Serum or Plasma CANDELARIA GLYNN Start: 04-04-2023 Thyrotropin [Units/volume] in Serum or Plasma CANDELARIA GLYNN Start: 04-04-2023 THYROXINE, FREE CANDELARIA GLYNN Start: 10-07-2022 BI MAMMO BILATERAL SCREENING TOMOSYNTHESIS CANDELARIA GLYNN Start: 09-27-2022 Lipid 1996 panel - Serum or Plasma Candelaria Glynn PA-C Work Phone: Start: 09-27-2022 Thyrotropin [Units/volume] in Serum or Plasma Candelaria Glynn PA-C Work Phone: Start: 08-03-2022 Vaccine refused by patient Immunization not carried out because of patient refusal Candelaria Glynn PA-C Work Phone: Start: 03-19-2021 Mammography Candelaria Glynn PA-C Work Phone: Start: 04-03-2020 Comprehensive metabolic 2000 panel Candelaria Glynn Start: 04-03-2020 Cyanocobalamin vitamin b-12 Candelaria Glynn Start: 04-03-2020 Hemoglobin glycosylated a1c Candelaria Glynn Start: 04-03-2020 Lipid panel Candelaria Glynn Start: 04-03-2020 OPIATE/OPIOID/BENZO [EXTENDED] PRESCRIPTION COMPLIANCE Candelaria Glynn Start: 09-27-2019 Assay of ferritin Candelaria Glynn Start: 09-27-2019 Assay of folic acid serum Candelaria gama Start: 09-27-2019 Assay of iron Candelaria Glynn Start: 09-27-2019 Blood count complete auto&auto difrntl wbc Candelaria Glynn Start: 09-27-2019 Comprehensive metabolic 2000 panel Candelaria Glynn Start: 09-27-2019 Cyanocobalamin vitamin b-12 Candelaria Glynn Start: 09-27-2019 Hemoglobin glycosylated a1c Candelaria Glynn Start: 09-27-2019 MG Breast screening Candelaria Glynn Start: 10-04-2017 Iv infusion hydration each additional hour ANTONIO SHERMAN Start: 10-04-2017 Ther proph/dx njx iv push single/1st sbst/drug ANTONIO SHERMAN Start: 06-23-1975 Extraction of wisdom tooth Candelaria Glynn Work Phone: Plan of Treatment Date Care Activity Detail Author Start: 09-28-2023 Lipid panel Lipid Panel [facility] Start: 09-28-2023 Thyroid stimulating hormone measurement TSH Level [facility] Start: 09-28-2023 Urine screening for protein Diabetes: Urine Protein Screening [facility] Start: 04-14-2023 End: 04-14-2023 Patient encounter procedure 04/14/2023 12:40 PM EDT Office Visit [facility] [address] [place] [id number] Candelaria Glynn PA-C [address] [place] [address] [facility] Start: 04-08-2023 End: 10-08-2023 CBC W Auto Differential panel - Blood CBC and Auto Differential Lab Routine Type 2 diabetes mellitus with hyperglycemia, without long-term current use of insulin ([facility]) Expected: 04/08/2023 (Approximate), Expires: 10/08/2023 [facility] Service Area Work Phone: Immunizations Immunization Date Immunization Notes Care Provider Kalyani montero 10-05-2021 Moderna COVID-19 Vaccine 100 MCG/0.5ML Intramuscular Suspension Candelaria Glynn Work Phone: [facility] 05-08-2021 Moderna COVID-19 Vaccine 100 MCG/0.5ML Intramuscular Suspension Candelaria Glynn Work Phone: [facility] 09-21-2020 Pfizer-BioNTech COVID-19 Vacc 30 MCG/0.3ML Intramuscular Suspension Candelaria Glynn Work Phone: [facility] Work Phone: Payers Date Payer Category Payer Medicare [employer]ARE HMO [id number] 2022-Present [address] [place] [address] [id number] 2022 Private Health Insurance [id number] 2017 Private Health Insurance 1954 Unknown [id number] 1954 Unknown [id number] 1954 Unknown [id number] 1954 Unknown [id number] 1954 Unknown [id number] 1954 Unknown [id number] 1954 Unknown [id number] 1954 Unknown [id number] 1954 Unknown [id number] 1954 Unknown [id number] Private Health Insurance [id number] Private Health Insurance [id number] Unknown Social History Date Type Detail Facility Start: 10-07-2022 Consumes alcohol Consumes alcohol [facility] Work Phone: Functional Status Date Assessment Result Facility NEGATED: Highlighted row Functional performance Functional status health issues are not documented Disease [facility] Work Phone: Mental Status Date Assessment Result Facility NEGATED: Highlighted row Cognitive function [Interpretation] Cognitive status health issues are not documented Disease [facility] Work Phone: Clinical Notes 10-07-2022 Assessment & Plan Note - Candelaria Glynn PA-C - 10/07/2022 1:14 PM EDTAssessment & Plan Note - Candelaria Glynn PA-C - 10/07/2022 1:14 PM EDT Note Date & Type Note Facility 10-07-2022 Evaluation + Plan note Associated Problem(s): Hypercholesterolemia Stable on fibrate [facility] Work Phone: 10-07-2022 Miscellaneous Notes Associated Problem(s): Hypercholesterolemia Stable on fibrate Associated Problem(s): Low vitamin B12 level Stable with supplement every other day Associated Problem(s): Type 2 diabetes mellitus with hyperglycemia, without long-term current use of insulin (CMS/HCC) Stable with diet and ex Associated Problem(s): Hypothyroidism Stable on meds Associated Problem(s): Benign essential hypertension Stable on meds documented in this encounter [facility] Work Phone: 10-07-2022 Evaluation + Plan note Associated Problem(s): Low vitamin B12 level Stable with supplement every other day [facility] Work Phone: 10-07-2022 Evaluation + Plan note Associated Problem(s): Type 2 diabetes mellitus with hyperglycemia, without long-term current use of insulin (CMS/HCC) Stable with diet and ex [facility] Work Phone: 10-07-2022 Evaluation + Plan note Associated Problem(s): Hypothyroidism Stable on meds [facility] Work Phone: 10-07-2022 Evaluation + Plan note Associated Problem(s): Benign essential hypertension Stable on meds [facility] Work Phone: 10-07-2022 History of Present illness Narrative Subjective Reason for Visit: Lizandro Meza is an 67 y.o. female here for a Medicare Wellness visit. Past Medical, Surgical, and Family History reviewed and updated in chart. Reviewed all medications by prescribing practitioner or clinical pharmacist (such as prescriptions, OTCs, herbal therapies and supplements) and documented in the medical record. Advanced Care Planning Diagnosis, treatment and prognosis discussed with patient. Patient has capacity to make his/her own decision. Patient DOES NOT have a living will. Patient is advised to set one up and bring a copy of this documenation for the chart. HPI Subsequent medicare wellness Review labs Med check hyperchol - taking fenobrate folic acid - recent restarted with rheum mood - ativan prn HTN -on meds psoriatic arthritis - following with RA dr Ralf delgadillo on methotrexate, folate and prednisone (prednisone is only for flares and has not taken at this time) season allergies /fluid in the ear - stable on lasix ENT dr krishnamurthy in [place] - pt states was told more menieres and fluids and really couldn't help her preventative testing mammo - feb 2021 cologuard - summer 2020 - NEG DEXA - feb 2021- WNl PAP - november 2017 -declines Depression - PHQ2 NEG September 2022 Fall - Neg September 2022 Advanced Care Patient Care Team: Candelaria Glynn PA-C as PCP - General Review of Systems Constitutional: Positive for fatigue. Negative for chills and fever. HENT: Positive for ear pain. Negative for congestion, rhinorrhea, sinus pain, sore throat and tinnitus. Eyes: Negative for discharge, redness and visual disturbance. Respiratory: Negative for cough, chest tightness, shortness of breath and wheezing. Cardiovascular: Negative for chest pain, palpitations and leg swelling. Gastrointestinal: Negative for abdominal pain, constipation, diarrhea, nausea and vomiting. Endocrine: Negative for cold intolerance and heat intolerance. Hair loss Genitourinary: Negative for flank pain, frequency and urgency. Musculoskeletal: Positive for arthralgias. Negative for back pain, gait problem and neck pain. Skin: Negative for rash and wound. Neurological: Negative for dizziness, tremors, syncope, numbness and headaches. Hematological: Does not bruise/bleed easily. Psychiatric/Behavioral: Negative for confusion, sleep disturbance and suicidal ideas. Objective Vitals: BP 114/73 (BP Location: Left arm, Patient Position: Sitting) Pulse 67 Wt 86.6 kg (191 lb) SpO2 97% BMI 27.41 kg/m Physical Exam Constitutional: Appearance: Normal appearance. HENT: Head: Normocephalic. Right Ear: External ear normal. Left Ear: External ear normal. Nose: Nose normal. No congestion or rhinorrhea. Mouth/Throat: Mouth: Mucous membranes are moist. Eyes: Extraocular Movements: Extraocular movements intact. Conjunctiva/sclera: Conjunctivae normal. Pupils: Pupils are equal, round, and reactive to light. Cardiovascular: Rate and Rhythm: Normal rate and regular rhythm. Pulses: Normal pulses. Pulmonary: Effort: Pulmonary effort is normal. Breath sounds: Normal breath sounds. Abdominal: General: Bowel sounds are normal. Palpations: Abdomen is soft. Tenderness: There is no abdominal tenderness. There is no right CVA tenderness or left CVA tenderness. Musculoskeletal: General: No tenderness. Normal range of motion. Cervical back: Normal range of motion. Rigidity present. No tenderness. Skin: General: Skin is warm and dry. Neurological: General: No focal deficit present. Mental Status: She is alert and oriented to person, place, and time. Psychiatric: Mood and Affect: Mood normal. Behavior: Behavior normal. Testing Component Latest Ref Rng 09/27/2022 WBC 4.4 - 11.3 x10E9/L 5.9 RBC 4.00 - 5.20 x10E12/L 4.04 HEMOGLOBIN 12.0 - 16.0 g/dL 13.1 HEMATOCRIT 36.0 - 46.0 % 41.1 MCV 80 - 100 fL 102 (H) MCHC 32.0 - 36.0 g/dL 31.9 (L) Platelets 150 - 450 x10E9/L 231 RED CELL DISTRIBUTION WIDTH 11.5 - 14.5 % 13.4 Neutrophils % 40.0 - 80.0 % 59.8 Immature Granulocytes %, Automated 0.0 - 0.9 % 0.3 Lymphocytes % 13.0 - 44.0 % 29.0 Monocytes % 2.0 - 10.0 % 7.7 Eosinophils % 0.0 - 6.0 % 2.7 Basophils % 0.0 - 2.0 % 0.5 Neutrophils Absolute 1.20 - 7.70 x10E9/L 3.50 Lymphocytes Absolute 1.20 - 4.80 x10E9/L 1.70 Monocytes Absolute 0.10 - 1.00 x10E9/L 0.45 Eosinophils Absolute 0.00 - 0.70 x10E9/L 0.16 Basophils Absolute 0.00 - 0.10 x10E9/L 0.03 GLUCOSE 74 - 99 mg/dL 135 (H) SODIUM 136 - 145 mmol/L 144 POTASSIUM 3.5 - 5.3 mmol/L 4.1 CHLORIDE 98 - 107 mmol/L 108 (H) Bicarbonate 21 - 32 mmol/L 31 Anion Gap 10 - 20 mmol/L 9 (L) Blood Urea Nitrogen 6 - 23 mg/dL 12 Creatinine 0.50 - 1.05 mg/dL 0.77 GFR Female >90 mL/min/1.73m2 84 Calcium 8.6 - 10.3 mg/dL 9.3 Albumin 3.4 - 5.0 g/dL 4.0 Alkaline Phosphatase 33 - 136 U/L 67 Total Protein 6.4 - 8.2 g/dL 6.4 AST 9 - 39 U/L 15 Bilirubin Total 0.0 - 1.2 mg/dL 0.5 ALT 7 - 45 U/L 13 CHOLESTEROL 0 - 199 mg/dL 181 HDL CHOLESTEROL mg/dL 46.0 Cholesterol/HDL Ratio 3.9 LDL 0 - 99 mg/dL 112 (H) VLDL 0 - 40 mg/dL 23 TRIGLYCERIDES 0 - 149 mg/dL 117 ALBUMIN (MG/L) IN URINE Not Established mg/L <7.0 Albumin/Creatine Ratio 0.0 - 30.0 ug/mg spot checker SEE COMMENT Creatinine, Urine Random 20.0 - 320.0 mg/dL 144.0 Hemoglobin A1C % 6.4 ! Estimated Average Glucose MG/DL 137 Thyroxine, Free 0.61 - 1.12 ng/dL 0.96 Vitamin B12 211 - 911 pg/mL 419 Thyroid Stimulating Hormone 0.44 - 3.98 mIU/L 2.37 Assessment/Plan Problem List Items Addressed This Visit Circulatory Benign essential hypertension Current Assessment & Plan Stable on meds Musculoskeletal Bilateral lower extremity edema Relevant Medications furosemide (Lasix) 20 mg tablet Endocrine/Metabolic Hypothyroidism Current Assessment & Plan Stable on meds Relevant Orders Thyroid Stimulating Hormone Thyroxine, Free Type 2 diabetes mellitus with hyperglycemia, without long-term current use of insulin ([facility]) Current Assessment & Plan Stable with diet and ex Relevant Orders CBC and Auto Differential Comprehensive Metabolic Panel Hemoglobin A1C Thyroid Stimulating Hormone Thyroxine, Free Iron and TIBC Ferritin Magnesium Vitamin B12 Overweight Overview Overweight Hematologic Low vitamin B12 level Current Assessment & Plan Stable with supplement every other day Relevant Orders Vitamin B12 Other Hypercholesterolemia Current Assessment & Plan Stable on fibrate Other malaise Overview Malaise and fatigue Relevant Orders Iron and TIBC Ferritin Other Visit Diagnoses Medicare annual wellness visit, subsequent - Primary Hair loss Relevant Orders Iron and TIBC Ferritin Encounter for screening mammogram for breast cancer Relevant Orders BI mammo bilateral screening tomosynthesis Advanced care planning/counseling discussion Routine general medical examination at health care facility Will start lasix daily x 3-4 weeks and re-eval to see if this better helps with chronic LE edema and the meniere's symptoms - monitor for symptoms of low K fU in 6 mo with labs at [facility] fasting and med check Mammo documented in this encounter [facility] Work Phone: documented in this encounter [facility] Work Phone: History of Present illness Narrative* Patient presents today for.... * 1 to Review labs * 2 Med check * hyperchol - taking fenobrate * folic acid - has stopped * mood - ativan prn * HTN -on meds * psoriatic arthritis - denies taking her meds at this time - currently not following with RA dr Ralf Patel d/t insurance issues * 3 ankle LE edema x few months and getting worse * pt denies any change in diet and activity * she is working from home and so maybe she is sitting more * 4 preventative testing * mammo - jan 2020- agreeable to schedule * cologuard - summer 2020 - NEG * DEXA - agreeable to schedule * PAP - november 2017 -declines * OARRS Report Last Screening Date: 03/05/2021 * I have personally reviewed the OARRS report for LIZANDRO MEZA. I have considered the risks of abuse, dependence, addiction and diversion. * Last urine drug screening date/ordered today: 10/02/2020 * Date of the last Controlled Substance Agreement: 03/05/2021 -[facility] Work Phone: History of Present illness Narrative* The patient is being seen for the subsequent annual wellness visit. * Past Medical, Surgical and Family History: reviewed and updated in chart. * Medications and Supplements: Review of all medications by a prescribing practitioner or clinical pharmacist (such as prescriptions, OTCs, herbal therapies and supplements) documented in the medical record. * No, the patient is not using opioids. * Patient Self Assessment of Health Status: excellent. * Tobacco use: Non-User * Alcohol use: Non-User * Illicit drug use: Non-User * Current diet: well balanced diet, does consume adequate fluids and does consume caffeine. * Exercise Frequency: infrequently. * Depression/Suicide Screening: . * During the past 2 weeks, the patient has not felt down, depressed or hopeless. * During the past 2 weeks, the patient has not felt little interest or pleasure in doing things. * Hearing Impairment: none. * Cognitive Impairment: No cognitive impairment observed, patient or family reported no cognitive impairment. * Bathing: performs independently. * Dressing: performs independently. * Walking: performs independently. * Toileting: performs independently. * Feeding: performs independently. * Personal Hygiene: performs independently. * Managing Finances: performs independently. * Shopping: performs independently. * Managing Medications: performs independently. * Housework / Basic Home Maintenance: performs independently. * Handling Transportation: performs independently. * Preparing Meals: performs independently. * Using the Telephone/ Communication Devices: performs independently. * Falls Risk Screening:. LIZANDRO has not fallen in the last 6 months. * Home safety risk factors: no grab bars in the bathroom. * Advance directives:. Advance Care Planning discussed and documented in the medical record, patient did not wish or was not able to name a surrogate decision maker or provide an advance care plan. Patient has no living will. Patient has no healthcare POA. * Patient presents today for.... * 1 subsequent Medicare Wellness * 2 to Review labs * 3 Med check * hyperchol - taking fenobrate * folic acid - has stopped * mood - ativan prn * HTN -on meds * psoriatic arthritis - denies taking her meds at this time - currently not following with RA dr Ralf Patel d/t insurance issues * 3 ankle LE edema x few months and getting worse * pt denies any change in diet and activity * she is working from home and so maybe she is sitting more * 4 preventative testing * mammo - feb 2021 * cologuard - summer 2020 - NEG * DEXA - feb 2021- WNl * PAP - november 2017 -declines * Depression - PHQ2 NEG September 2021 * [facility] * Initial Fall Risk Screening: * LIZANDRO has not fallen in the last 6 months. * Pain Scale: On a scale of 0 to 10, the patient rates the pain at 3. * Please identify location of pain: knees/hands. * Pain Quality: aching. * The pain makes it hard for the patient to do these things: sleep. * Tobacco Screening: LIZANDRO does not use tobacco. * Diabetes Evaluation: * HbA1c < 7%. * Blood Pressure monitoring * Blood Pressure Controlled, Systolic = 130-139 mm Hg * OARRS Report Last Screening Date: 10/08/2021 * I have personally reviewed the OARRS report for LIZANDRO MEZA. I have considered the risks of abuse, dependence, addiction and diversion. * Last urine drug screening date/ordered today: 10/08/2021 * Date of the last Controlled Substance Agreement: 03/05/2021 -[facility] Work Phone: History of Present illness Narrative* Patient presents today for.... * 1 subsequent Medicare Wellness * 2 to Review labs * 3 Med check * hyperchol - taking fenobrate * folic acid - has stopped * mood - ativan prn * HTN -on meds * psoriatic arthritis - denies taking her meds at this time - currently not following with RA dr Ralf vera/t insurance issues - she did follow back with her in the last few weeks and has re-started on methotrexate, folate and prednisone (prednisone is only for flares and has not taken at this time) * season allergies /fluid in the ear - stable on lasix * ENT dr krishnamurthy in [facility] states was told more menieres and fluids and really couldn't help her * 4 preventative testing * mammo - feb 2021 * cologuard - summer 2020 - NEG * DEXA - feb 2021- WNl * PAP - november 2017 -declines * Depression - PHQ2 NEG September 2021 * [facility] * OARRS Report Last Screening Date: 10/08/2021 * I have personally reviewed the OARRS report for LIZANDRO MEZA. I have considered the risks of abuse, dependence, addiction and diversion. * Last urine drug screening date/ordered today: 10/08/2021 * Date of the last Controlled Substance Agreement: 04/08/2022 -[facility] Work Phone: History of Present illness Narrative* Patient presents today for.... * 1 to Review labs * 2 Med check * hyperchol - taking fenobrate * folic acid - recent restarted with rheum * mood - ativan prn * HTN -on meds * psoriatic arthritis - previously was off meds and not following with RA dr Ralf nick insurance issues - she did follow back with her in the last few weeks and has re-started on methotrexate, folate and prednisone (prednisone is only for flares and has not taken at this time) * season allergies /fluid in the ear - stable on lasix * ENT dr krishnamurthy in [facility] states was told more menieres and fluids and really couldn't help her * 3 preventative testing * mammo - feb 2021 * cologuard - summer 2020 - NEG * DEXA - feb 2021- WNl * PAP - november 2017 -declines * Depression - PHQ2 NEG September 2021 * [facility] * OARRS Report Last Screening Date: 04/08/2022 * I have personally reviewed the OARRS report for LIZANDRO MEZA. I have considered the risks of abuse, dependence, addiction and diversion. * Last urine drug screening date/ordered today: 10/08/2021 * Date of the last Controlled Substance Agreement: 04/08/2022 [facility] Work Phone: Summary Purpose Family History No Family History Records Found Grandparent Name Dates Details Family history of Primary ma lignant neoplasm of female breast(174.9, C50.919) Status:Active Mother Name Dates Details Family history of rheumatoid arthritis(V17.7, Z82.61) Status:Active Father Name Dates Details Family history of hypothyroi dism(V18.19, Z83.49) Status:Active Family history of hypertensi on(V17.49, Z82.49) Status:Active Family history of chronic ob structive pulmonary disease(V17.6, Z82.5) Status:Active Sister Name Dates Details Family history of hypothyroi dism(V18.19, Z83.49) Status:Active Brother Name Dates Details Family history of hypothyroi dism(V18.19, Z83.49) Status:Active Grandparent Name Dates Details Family history of Primary ma lignant neoplasm of female breast(174.9, C50.919) Status:Active Mother Name Dates Details Family history of rheumatoid arthritis(V17.7, Z82.61) Status:Active Father Name Dates Details Family history of hypothyroi dism(V18.19, Z83.49) Status:Active Family history of hypertensi on(V17.49, Z82.49) Status:Active Family history of chronic ob structive pulmonary disease(V17.6, Z82.5) Status:Active Sister Name Dates Details Family history of hypothyroi dism(V18.19, Z83.49) Status:Active Brother Name Dates Details Family history of hypothyroi dism(V18.19, Z83.49) Status:Active Grandparent Name Dates Details Family history of Primary ma lignant neoplasm of female breast(174.9, C50.919) Status:Active Grandmother Name Dates Details Family history of malignant neoplasm of breast(V16.3, Z80.3) Status:Active Mother Name Dates Details Family history of rheumatoid arthritis(V17.7, Z82.61) Status:Active Father Name Dates Details Family history of hypothyroi dism(V18.19, Z83.49) Status:Active Family history of hypertensi on(V17.49, Z82.49) Status:Active Family history of chronic ob structive pulmonary disease(V17.6, Z82.5) Status:Active Sister Name Dates Details Family history of hypothyroi dism(V18.19, Z83.49) Status:Active Brother Name Dates Details Family history of hypothyroi dism(V18.19, Z83.49) Status:Active Unknown Family Member Name Dates Details Family history of hypothyroi dism: Father, Sister, Brother(V18.19, Z83.49) Status:Active Family history of rheumatoid arthritis: Mother(V17.7, Z82.61) Status:Active Family history of hypertensi on: Father(V17.49, Z82.49) Status:Active Family history of chronic ob structive pulmonary disease: Father(V17.6, Z82.5) Status:Active Primary malignant neoplasm o f female breast: Grandparent Status:Active Family history of malignant neoplasm of breast: Grandmother(V16.3, Z80.3) Comments:AGE 70; Status:Active Unknown Family Member Name Dates Details Family history of hypothyroi dism: Father, Sister, Brother(V18.19, Z83.49) Status:Active Family history of rheumatoid arthritis: Mother(V17.7, Z82.61) Status:Active Family history of hypertensi on: Father(V17.49, Z82.49) Status:Active Family history of chronic ob structive pulmonary disease: Father(V17.6, Z82.5) Status:Active Primary malignant neoplasm o f female breast: Grandparent Status:Active Family history of malignant neoplasm of breast: Grandmother(V16.3, Z80.3) Comments:AGE 70; Status:Active Unknown Family Member Name Dates Details Family history of hypothyroi dism: Father, Sister, Brother(V18.19, Z83.49) Status:Active Family history of rheumatoid arthritis: Mother(V17.7, Z82.61) Status:Active Family history of hypertensi on: Father(V17.49, Z82.49) Status:Active Family history of chronic ob structive pulmonary disease: Father(V17.6, Z82.5) Status:Active Primary malignant neoplasm o f female breast: Grandparent Status:Active Family history of malignant neoplasm of breast: Grandmother(V16.3, Z80.3) Comments:AGE 70; Status:Active Unknown Family Member Name Dates Details Family history of hypothyroi dism: Father, Sister, Brother(V18.19, Z83.49) Status:Active Family history of rheumatoid arthritis: Mother(V17.7, Z82.61) Status:Active Family history of hypertensi on: Father(V17.49, Z82.49) Status:Active Family history of chronic ob structive pulmonary disease: Father(V17.6, Z82.5) Status:Active Primary malignant neoplasm o f female breast: Grandparent Status:Active Family history of malignant neoplasm of breast: Grandmother(V16.3, Z80.3) Comments:AGE 70; Status:Active Unknown Family Member Name Dates Details Family history of hypothyroi dism: Father, Sister, Brother(V18.19, Z83.49) Status:Active Family history of rheumatoid arthritis: Mother(V17.7, Z82.61) Status:Active Family history of hypertensi on: Father(V17.49, Z82.49) Status:Active Family history of chronic ob structive pulmonary disease: Father(V17.6, Z82.5) Status:Active Primary malignant neoplasm o f female breast: Grandparent Status:Active Family history of malignant neoplasm of breast: Grandmother(V16.3, Z80.3) Comments:AGE 70; Status:Active Unknown Family Member Name Dates Details Family history of hypothyroi dism: Father, Sister, Brother(V18.19, Z83.49) Status:Active Family history of rheumatoid arthritis: Mother(V17.7, Z82.61) Status:Active Family history of hypertensi on: Father(V17.49, Z82.49) Status:Active Family history of chronic ob structive pulmonary disease: Father(V17.6, Z82.5) Status:Active Primary malignant neoplasm o f female breast: Grandparent Status:Active Family history of malignant neoplasm of breast: Grandmother(V16.3, Z80.3) Comments:AGE 70; Status:Active Unknown Family Member Name Dates Details Family history of hypothyroi dism: Father, Sister, Brother(V18.19, Z83.49) Status:Active Family history of rheumatoid arthritis: Mother(V17.7, Z82.61) Status:Active Family history of hypertensi on: Father(V17.49, Z82.49) Status:Active Family history of chronic ob structive pulmonary disease: Father(V17.6, Z82.5) Status:Active Primary malignant neoplasm o f female breast: Grandparent Status:Active Family history of malignant neoplasm of breast: Grandmother(V16.3, Z80.3) Comments:AGE 70; Status:Active Unknown Family Member Name Dates Details Family history of hypothyroi dism: Father, Sister, Brother(V18.19, Z83.49) Status:Active Family history of rheumatoid arthritis: Mother(V17.7, Z82.61) Status:Active Family history of hypertensi on: Father(V17.49, Z82.49) Status:Active Family history of chronic ob structive pulmonary disease: Father(V17.6, Z82.5) Status:Active Primary malignant neoplasm o f female breast: Grandparent Status:Active Family history of malignant neoplasm of breast: Grandmother(V16.3, Z80.3) Comments:AGE 70; Status:Active Unknown Family Member Name Dates Details Family history of hypothyroi dism: Father, Sister, Brother(V18.19, Z83.49) Status:Active Family history of rheumatoid arthritis: Mother(V17.7, Z82.61) Status:Active Family history of hypertensi on: Father(V17.49, Z82.49) Status:Active Family history of chronic ob structive pulmonary disease: Father(V17.6, Z82.5) Status:Active Primary malignant neoplasm o f female breast: Grandparent Status:Active Family history of malignant neoplasm of breast: Grandmother(V16.3, Z80.3) Comments:AGE 70; Status:Active Unknown Family Member Name Dates Details Family history of hypothyroi dism: Father, Sister, Brother(V18.19, Z83.49) Status:Active Family history of rheumatoid arthritis: Mother(V17.7, Z82.61) Status:Active Family history of hypertensi on: Father(V17.49, Z82.49) Status:Active Family history of chronic ob structive pulmonary disease: Father(V17.6, Z82.5) Status:Active Primary malignant neoplasm o f female breast: Grandparent Status:Active Family history of malignant neoplasm of breast: Grandmother(V16.3, Z80.3) Comments:AGE 70; Status:Active Unknown Family Member Name Dates Details Family history of hypothyroi dism: Father, Sister, Brother(V18.19, Z83.49) Status:Active Family history of rheumatoid arthritis: Mother(V17.7, Z82.61) Status:Active Family history of hypertensi on: Father(V17.49, Z82.49) Status:Active Family history of chronic ob structive pulmonary disease: Father(V17.6, Z82.5) Status:Active Primary malignant neoplasm o f female breast: Grandparent Status:Active Family history of malignant neoplasm of breast: Grandmother(V16.3, Z80.3) Comments:AGE 70; Status:Active Unknown Family Member Name Dates Details Family history of hypothyroi dism: Father, Sister, Brother(V18.19, Z83.49) Status:Active Family history of rheumatoid arthritis: Mother(V17.7, Z82.61) Status:Active Family history of hypertensi on: Father(V17.49, Z82.49) Status:Active Family history of chronic ob structive pulmonary disease: Father(V17.6, Z82.5) Status:Active Primary malignant neoplasm o f female breast: Grandparent Status:Active Family history of malignant neoplasm of breast: Grandmother(V16.3, Z80.3) Comments:AGE 70; Status:Active Unknown Family Member Name Dates Details Family history of hypothyroi dism: Father, Sister, Brother(V18.19, Z83.49) Status:Active Family history of rheumatoid arthritis: Mother(V17.7, Z82.61) Status:Active Family history of hypertensi on: Father(V17.49, Z82.49) Status:Active Family history of chronic ob structive pulmonary disease: Father(V17.6, Z82.5) Status:Active Primary malignant neoplasm o f female breast: Grandparent Status:Active Family history of malignant neoplasm of breast: Grandmother(V16.3, Z80.3) Comments:AGE 70; Status:Active Advance Directives No Advanced Directives Records FoundNo Advanced Directives Records FoundNo Advanced Directives Records FoundNo Advanced Directives Records FoundNo Advanced Directives Records FoundNo Advanced Directives Records FoundNo Advanced Directives Records FoundNo Advanced Directives Records Found Chief Complaint 6 MO F/U LABS/LORAZEPAM CHECK/RF; C/O B/L ANKLE EDEMA* ANNUAL MEDICARE WELLNESS * LAB REVIEW 6 MONTH F/U W LABS.6 MONTH F/U W LABS. Reason for Referral Specialty Diagnoses / Procedures Referred By Dustin t Referred To Contact Radiology Diagnoses Encounter for screening mammogram for breast cancer Procedures BI mammo bilateral screening tomosynthesis Candelaria Glynn PA-C [address] [place] [address] [id number] Referral ID Status Reason Start Date Expiration Date Visits Requested Visits Authorized [id number] Authorized Perform Procedure 10/07/2022 04/05/2023 1 1 Additional Source Comments INFORMATION SOURCE (unrecogn ized section and content) DATE CREATED AUTHOR AUTHOR'S ORGANIZ ATION 12/10/2017 [facility] DATE CREATED AUTHOR AUTHOR'S ORGANIZ ATION 09/29/2018 [facility] DATE CREATED AUTHOR AUTHOR'S ORGANIZ ATION 04/14/2022 [employer] DATE CREATED AUTHOR AUTHOR'S ORGANIZ ATION 09/29/2022 [facility] DATE CREATED AUTHOR AUTHOR'S ORGANIZ ATION 10/13/2022 [facility] DATE CREATED AUTHOR AUTHOR'S ORGANIZ ATION 04/09/2023 [facility] DATE CREATED AUTHOR AUTHOR'S ORGANIZ ATION 04/16/2023 [facility] Reason for Visit (unrecogniz ed section and content) Care Teams (unrecognized sec tion and content) FOR RECORDS PERTAINING TO PATIENTS WHO ARE OR HAVE BEEN ENROLLED IN A CHEMICAL DEPENDENCY/SUBSTANCEABUSE PROGRAM, SOME INFORMATION MAY BE OMITTED. This clinical summary was aggregated from multiple sources. Caution should be exercised in using it in the provision of clinical care. This summary normalizes information from multiple sources, and as a consequence, information in this document may materially change the coding, format and clinical context of patient data. In addition, data may be omitted in some cases. CLINICAL DECISIONS SHOULD BE BASED ON THE PRIMARY CLINICAL RECORDS. [employer] provides no warranty or guarantee of the accuracy or completeness of information in this document.
[2023-07-07 17:37] LABS: Absolute Lymphocyte Count 2.45 X10^3/uL (0.83-4.51); Basophil# 0.04 X10^3/uL; Basophil% 0.5 % (0-1); Eosinophil# 0.12 X10^3/uL; Eosinophils% 1.5 % (0-5); Hematocrit 42.4 % (37-47); Hemoglobin 13.7 g/dL (12.0-15.0); Lymphocyte # 2.45 X10^3/ul (0.83-4.51); Lymphocyte % 29.8 % (19-41); Mean Corp Hgb Conc 32.3 g/dL (32-36); Mean Corpuscular Hgb 32.7 pg (27.0-32.0); Mean Corpuscular Volume 101.2 fL (81-99); Mean Platelet Vol. 11.7 fl (6.2-12.0); Monocyte# 0.59 X10^3/uL; Monocyte% 7.2 % (0-10); NRBC Flagged by Analyzer 0 % (0-5); Neutrophil # 4.98 X10^3/uL (2.7-7.7); Neutrophil % 60.6 % (47-70); Platelet Count 245 K/mm3 (150-450); RBC Distribution Width CV 13.1 % (11.6-14.6); RBC Distribution Width SD 48.8 fl (35.1-43.9); Red Blood Count 4.19 M/mm3 (4.2-5.4); White Blood Count 8.2 K/mm3 (4.4-11.0)
[2023-07-07 18:03] LABS: ALB/GLOB Ratio 1.1 RATIO (0.9-2.4); AST(SGOT) 22 U/L (15-37); Alanine Aminotransfer ALT/SGPT 28 U/L (13-56); Albumin, Serum 3.8 g/dL (3.2-5.0); Alkaline Phosphatase 94 U/L (45-117); Anion Gap 7 (5-15); BUN 11 mg/dL (7-18); BUN/Creat Ratio 14.5 RATIO (10-20); Calcium,Total 9.6 mg/dL (8.5-10.1); Chloride 107 mmol/L (98-107); Creatinine, Serum 0.76 mg/dL (0.55-1.02); EST Glomerular Filtration Rate 80 mL/min (>60); Est Glom Filt Rate - Afr Amer 97 mL/min (>60); Globulin 3.6 g/dL (2.2-4.2); Glucose 109 mg/dL (74-106); Potassium 3.9 mmol/L (3.5-5.1); Protein, Total 7.4 g/dL (6.4-8.2); Sodium Level 143 mmol/L (136-145)
== END | disposition home or self-care (01) ==
PROVIDERS: PCP Physician Assistant Medical; Referring Provider Internal Medicine Rheumatology; Visit Provider Internal Medicine Rheumatology
DX: L40.59 Other psoriatic arthropathy (principal); Z79.899 Other long term (current) drug therapy; L40.8 Other psoriasis
CPT/HCPCS: 36415; 80053; 85025

== ENCOUNTER → 2023-10-03 | Outpatient (CLI) | payer MEDICARE, SELFPAY ==
[2023-10-03 10:32] LABS: Absolute Lymphocyte Count 1.41 X10^3/uL (0.83-4.51); Absolute Neutrophil Count 6.8 X10^3/uL (2.0-7.7); Basophil# 0.04 X10^3/uL; Basophil% 0.4 % (0-1); Eosinophil# 0.15 X10^3/uL; Eosinophils% 1.7 % (0-5); Hematocrit 39.4 % (37-47); Hemoglobin 12.9 g/dL (12.0-15.0); Lymphocyte # 1.41 X10^3/ul (0.83-4.51); Lymphocyte % 15.7 % (19-41); Mean Corp Hgb Conc 32.7 g/dL (32-36); Mean Corpuscular Hgb 32.9 pg (27.0-32.0); Mean Corpuscular Volume 100.5 fL (81-99); Mean Platelet Vol. 11.9 fl (6.2-12.0); Monocyte# 0.54 X10^3/uL; NRBC Flagged by Analyzer 0 % (0-5); Neutrophil # 6.82 X10^3/uL (2.7-7.7); Neutrophil % 75.9 % (47-70); Platelet Count 226 K/mm3 (150-450); RBC Distribution Width CV 13.3 % (11.6-14.6); RBC Distribution Width SD 49.1 fl (35.1-43.9); Red Blood Count 3.92 M/mm3 (4.2-5.4)
[2023-10-03 11:06] LABS: ALB/GLOB Ratio 1.1 RATIO (0.9-2.4); AST(SGOT) 17 U/L (15-37); Alanine Aminotransfer ALT/SGPT 26 U/L (13-56); Albumin, Serum 3.5 g/dL (3.2-5.0); Alkaline Phosphatase 95 U/L (45-117); Anion Gap 5 (5-15); BUN 12 mg/dL (7-18); BUN/Creat Ratio 15.3 RATIO (10-20); Calcium,Total 9.1 mg/dL (8.5-10.1); Chloride 109 mmol/L (98-107); Creatinine, Serum 0.78 mg/dL (0.55-1.02); EST Glomerular Filtration Rate 77 mL/min (>60); Est Glom Filt Rate - Afr Amer 94 mL/min (>60); Globulin 3.3 g/dL (2.2-4.2); Glucose 176 mg/dL (74-106); Potassium 3.9 mmol/L (3.5-5.1); Protein, Total 6.8 g/dL (6.4-8.2); Sodium Level 143 mmol/L (136-145)
== END | disposition home or self-care (01) ==
LOC: MTLAB 09:00
PROVIDERS: PCP Physician Assistant Medical; Referring Provider Internal Medicine Rheumatology; Visit Provider Internal Medicine Rheumatology
DX: L40.59 Other psoriatic arthropathy (principal); L40.8 Other psoriasis; M79.7 Fibromyalgia; Z79.899 Other long term (current) drug therapy
CPT/HCPCS: 36415; 80053; 85025

== ENCOUNTER → 2023-12-30 | Outpatient (CLI) | payer MEDICARE, SELFPAY ==
[2023-12-30 17:48] LABS: Absolute Lymphocyte Count 1.99 X10^3/uL (0.83-4.51); Basophil# 0.04 X10^3/uL; Basophil% 0.6 % (0-1); Eosinophils% 1.5 % (0-5); Hemoglobin 13.2 g/dL (12.0-15.0); Lymphocyte # 1.99 X10^3/ul (0.83-4.51); Lymphocyte % 29.9 % (19-41); Mean Corp Hgb Conc 32.2 g/dL (32-36); Mean Corpuscular Hgb 31.7 pg (27.0-32.0); Mean Corpuscular Volume 98.6 fL (81-99); Mean Platelet Vol. 12.1 fl (6.2-12.0); Monocyte# 0.48 X10^3/uL; Monocyte% 7.2 % (0-10); NRBC Flagged by Analyzer 0 % (0-5); Neutrophil # 4.01 X10^3/uL (2.7-7.7); Neutrophil % 60.3 % (47-70); Platelet Count 232 K/mm3 (150-450); RBC Distribution Width CV 13.6 % (11.6-14.6); RBC Distribution Width SD 49.1 fl (35.1-43.9); Red Blood Count 4.16 M/mm3 (4.2-5.4); White Blood Count 6.7 K/mm3 (4.4-11.0)
[2023-12-30 18:06] LABS: ALB/GLOB Ratio 1.2 RATIO (0.9-2.4); AST(SGOT) 20 U/L (15-37); Alanine Aminotransfer ALT/SGPT 25 U/L (13-56); Albumin, Serum 3.8 g/dL (3.2-5.0); Alkaline Phosphatase 109 U/L (45-117); Anion Gap 4 (5-15); BUN 16 mg/dL (7-18); BUN/Creat Ratio 19.1 RATIO (10-20); Calcium,Total 9.7 mg/dL (8.5-10.1); Chloride 106 mmol/L (98-107); Creatinine, Serum 0.84 mg/dL (0.55-1.02); EST Glomerular Filtration Rate 72 mL/min (>60); Est Glom Filt Rate - Afr Amer 87 mL/min (>60); Globulin 3.3 g/dL (2.2-4.2); Glucose 185 mg/dL (74-106); Potassium 3.8 mmol/L (3.5-5.1); Protein, Total 7.1 g/dL (6.4-8.2); Sodium Level 138 mmol/L (136-145)
== END | disposition home or self-care (01) ==
LOC: MTLAB 14:57
PROVIDERS: PCP Physician Assistant Medical; Referring Provider Internal Medicine Rheumatology; Visit Provider Internal Medicine Rheumatology
DX: L40.59 Other psoriatic arthropathy (principal); Z79.899 Other long term (current) drug therapy; L40.8 Other psoriasis; M79.7 Fibromyalgia
CPT/HCPCS: 36415; 80053; 85025

== ENCOUNTER → 2024-03-22 | Outpatient (CLI) | payer MEDICARE, SELFPAY ==
[2024-03-22 12:08] LABS: Absolute Neutrophil Count 4.5 X10^3/uL (2.0-7.7); Basophil# 0.04 X10^3/uL; Basophil% 0.6 % (0-1); Eosinophil# 0.11 X10^3/uL; Eosinophils% 1.6 % (0-5); Hematocrit 41.3 % (37-47); Hemoglobin 13.2 g/dL (12.0-15.0); Mean Corpuscular Hgb 32.6 pg (27.0-32.0); Mean Platelet Vol. 11.4 fl (6.2-12.0); Monocyte% 7.1 % (0-10); NRBC Flagged by Analyzer 0 % (0-5); Neutrophil # 4.48 X10^3/uL (2.7-7.7); Neutrophil % 63.4 % (47-70); Platelet Count 251 K/mm3 (150-450); RBC Distribution Width CV 13.4 % (11.6-14.6); RBC Distribution Width SD 50.6 fl (35.1-43.9); Red Blood Count 4.05 M/mm3 (4.2-5.4); White Blood Count 7.1 K/mm3 (4.4-11.0)
[2024-03-22 13:06] LABS: AST(SGOT) 30 U/L (15-37); Alanine Aminotransfer ALT/SGPT 24 U/L (13-56); Albumin, Serum 3.8 g/dL (3.2-5.0); Alkaline Phosphatase 97 U/L (45-117); Anion Gap 6 (5-15); BUN 7 mg/dL (7-18); BUN/Creat Ratio 8.2 RATIO (10-20); Calcium,Total 9.7 mg/dL (8.5-10.1); Chloride 108 mmol/L (98-107); Creatinine, Serum 0.86 mg/dL (0.55-1.02); EST Glomerular Filtration Rate 70 mL/min (>60); Est Glom Filt Rate - Afr Amer 84 mL/min (>60); Globulin 3.7 g/dL (2.2-4.2); Glucose 155 mg/dL (74-106); Protein, Total 7.5 g/dL (6.4-8.2); Sodium Level 143 mmol/L (136-145)
== END | disposition home or self-care (01) ==
PROVIDERS: PCP Physician Assistant Medical; Referring Provider Internal Medicine Rheumatology; Visit Provider Internal Medicine Rheumatology
DX: L40.59 Other psoriatic arthropathy (principal); Z79.899 Other long term (current) drug therapy; L40.8 Other psoriasis; M79.7 Fibromyalgia
CPT/HCPCS: 36415; 80053; 85025

== ENCOUNTER → 2024-06-10 | Outpatient (CLI) | payer MEDICARE, SELFPAY ==
[2024-06-10 12:39] LABS: Absolute Neutrophil Count 3.1 X10^3/uL (2.0-7.7); Basophil# 0.04 X10^3/uL; Basophil% 0.7 % (0-1); Eosinophil# 0.13 X10^3/uL; Eosinophils% 2.3 % (0-5); Hemoglobin 12.7 g/dL (12.0-15.0); Lymphocyte % 33.1 % (19-41); Mean Corp Hgb Conc 31.8 g/dL (32-36); Mean Corpuscular Hgb 31.8 pg (27.0-32.0); Mean Corpuscular Volume 100.3 fL (81-99); Mean Platelet Vol. 11.4 fl (6.2-12.0); Monocyte# 0.51 X10^3/uL; Monocyte% 8.9 % (0-10); NRBC Flagged by Analyzer 0 % (0-5); Neutrophil # 3.14 X10^3/uL (2.7-7.7); Neutrophil % 54.7 % (47-70); Platelet Count 251 K/mm3 (150-450); RBC Distribution Width CV 12.8 % (11.6-14.6); RBC Distribution Width SD 47.2 fl (35.1-43.9); Red Blood Count 3.99 M/mm3 (4.2-5.4); White Blood Count 5.7 K/mm3 (4.4-11.0)
[2024-06-10 12:57] LABS: ALB/GLOB Ratio 0.9 RATIO (0.9-2.4); AST(SGOT) 18 U/L (15-37); Alanine Aminotransfer ALT/SGPT 22 U/L (13-56); Albumin, Serum 3.4 g/dL (3.2-5.0); Alkaline Phosphatase 99 U/L (45-117); Anion Gap 5 (5-15); BUN 10 mg/dL (7-18); BUN/Creat Ratio 12.3 RATIO (10-20); Calcium,Total 9.1 mg/dL (8.5-10.1); Chloride 108 mmol/L (98-107); Creatinine, Serum 0.81 mg/dL (0.55-1.02); EST Glomerular Filtration Rate 74 mL/min (>60); Est Glom Filt Rate - Afr Amer 90 mL/min (>60); Globulin 3.7 g/dL (2.2-4.2); Glucose 228 mg/dL (74-106); Potassium 3.5 mmol/L (3.5-5.1); Protein, Total 7.1 g/dL (6.4-8.2); Sodium Level 138 mmol/L (136-145)
== END | disposition home or self-care (01) ==
PROVIDERS: PCP Physician Assistant Medical; Referring Provider Internal Medicine Rheumatology; Visit Provider Internal Medicine Rheumatology
DX: L40.59 Other psoriatic arthropathy (principal); Z79.899 Other long term (current) drug therapy
CPT/HCPCS: 36415; 80053; 85025

== ENCOUNTER → 2024-09-13 | Outpatient (CLI) | payer MEDICARE, SELFPAY ==
[2024-09-13 12:41] LABS: Absolute Lymphocyte Count 1.69 X10^3/uL (0.83-4.51); Absolute Neutrophil Count 4.8 X10^3/uL (2.0-7.7); Basophil# 0.04 X10^3/uL; Basophil% 0.6 % (0-1); Eosinophil# 0.11 X10^3/uL; Eosinophils% 1.5 % (0-5); Hematocrit 40.4 % (37-47); Hemoglobin 13.5 g/dL (12.0-15.0); Lymphocyte # 1.69 X10^3/ul (0.83-4.51); Lymphocyte % 23.6 % (19-41); Mean Corp Hgb Conc 33.4 g/dL (32-36); Mean Corpuscular Hgb 33.4 pg (27.0-32.0); Mean Platelet Vol. 11.4 fl (6.2-12.0); Monocyte# 0.47 X10^3/uL; Monocyte% 6.6 % (0-10); NRBC Flagged by Analyzer 0 % (0-5); Neutrophil # 4.84 X10^3/uL (2.7-7.7); Neutrophil % 67.4 % (47-70); Platelet Count 237 K/mm3 (150-450); RBC Distribution Width CV 13.2 % (11.6-14.6); RBC Distribution Width SD 48.5 fl (35.1-43.9); Red Blood Count 4.04 M/mm3 (4.2-5.4); White Blood Count 7.2 K/mm3 (4.4-11.0)
[2024-09-14 00:12] LABS: ALB/GLOB Ratio 1.5 RATIO (0.9-2.4); AST(SGOT) 18 U/L (<=31); Alanine Aminotransfer ALT/SGPT 16 U/L (<=34); Alkaline Phosphatase 87 U/L (35-104); Anion Gap 14 (5-15); BUN 13 mg/dL (4-19); BUN/Creat Ratio 18.3 RATIO (10-20); Calcium,Total 9.6 mg/dL (7.6-11.0); Carbon Dioxide 23.4 mmol/L (21.0-32.0); Chloride 102 mmol/L (98-108); Creatinine, Serum 0.73 mg/dL (0.70-1.20); EST Glomerular Filtration Rate 89 (>60); Globulin 2.8 g/dL (2.2-4.2); Glucose 201 mg/dL (70-99); Potassium 3.9 mmol/L (3.3-5.1); Protein, Total 6.8 g/dL (5.9-8.4); Sodium Level 140 mmol/L (133-145); Total Bilirubin 0.36 mg/dL (0.00-1.30)
== END | disposition home or self-care (01) ==
LOC: MTLAB 10:48
PROVIDERS: PCP Physician Assistant Medical; Referring Provider Internal Medicine Rheumatology; Visit Provider Internal Medicine Rheumatology
DX: L40.59 Other psoriatic arthropathy (principal); Z79.899 Other long term (current) drug therapy; M79.7 Fibromyalgia
CPT/HCPCS: 36415; 80053; 85025

== ENCOUNTER → 2024-12-09 | Outpatient (CLI) | payer MEDICARE, SELFPAY ==
[2024-12-09 15:13] LABS: Absolute Lymphocyte Count 1.52 X10^3/uL (0.83-4.51); Basophil# 0.03 X10^3/uL; Basophil% 0.5 % (0-1); Eosinophil# 0.05 X10^3/uL; Eosinophils% 0.8 % (0-5); Hematocrit 39.3 % (37-47); Lymphocyte # 1.52 X10^3/ul (0.83-4.51); Mean Corp Hgb Conc 33.1 g/dL (32-36); Mean Corpuscular Hgb 33.5 pg (27.0-32.0); Mean Corpuscular Volume 101.3 fL (81-99); Mean Platelet Vol. 12.1 fl (6.2-12.0); Monocyte% 8.2 % (0-10); NRBC Flagged by Analyzer 0 % (0-5); Neutrophil # 3.97 X10^3/uL (2.7-7.7); Neutrophil % 65.2 % (47-70); Platelet Count 213 K/mm3 (150-450); RBC Distribution Width SD 48.8 fl (35.1-43.9); Red Blood Count 3.88 M/mm3 (4.2-5.4); White Blood Count 6.1 K/mm3 (4.4-11.0)
[2024-12-09 16:01] LABS: ALB/GLOB Ratio 1.7 RATIO (0.9-2.4); AST(SGOT) 19 U/L (<=31); Alanine Aminotransfer ALT/SGPT 14 U/L (<=34); Albumin, Serum 4.1 g/dL (3.4-4.8); Alkaline Phosphatase 85 U/L (35-104); Anion Gap 14 (5-15); BUN 14 mg/dL (4-19); BUN/Creat Ratio 15.4 RATIO (10-20); Calcium,Total 9.6 mg/dL (7.6-11.0); Carbon Dioxide 24.9 mmol/L (21.0-32.0); Chloride 104 mmol/L (98-108); Creatinine, Serum 0.89 mg/dL (0.70-1.20); EST Glomerular Filtration Rate 70 (>60); Globulin 2.5 g/dL (2.2-4.2); Glucose 268 mg/dL (70-99); Potassium 4.1 mmol/L (3.3-5.1); Protein, Total 6.5 g/dL (5.9-8.4); Sodium Level 144 mmol/L (133-145); Total Bilirubin 0.26 mg/dL (0.00-1.30)
== END | disposition home or self-care (01) ==
LOC: MTLAB 11:18
PROVIDERS: PCP Physician Assistant Medical; Referring Provider Internal Medicine Rheumatology; Visit Provider Internal Medicine Rheumatology
DX: L40.59 Other psoriatic arthropathy (principal); Z79.899 Other long term (current) drug therapy; L40.8 Other psoriasis; M79.7 Fibromyalgia
CPT/HCPCS: 36415; 80053; 85025

== ENCOUNTER → 2025-03-14 | Outpatient (CLI) | payer MEDICARE, SELFPAY ==
[2025-03-14 15:30] LABS: Hematocrit 39.5 % (37-47); Hemoglobin 13.1 g/dL (12.0-15.0); Immature Granulocytes Count 0.020 X10^3/uL (0.0-0.0); Mean Corp Hgb Conc 33.2 g/dL (32-36); Mean Corpuscular Volume 100.3 fL (81-99); Mean Platelet Vol. 12.3 fl (6.2-12.0); NRBC Flagged by Analyzer 0 % (0-5); Platelet Count 227 K/mm3 (150-450); RBC Distribution Width CV 13.0 % (11.6-14.6); RBC Distribution Width SD 47.7 fl (35.1-43.9); Red Blood Count 3.94 M/mm3 (4.2-5.4); White Blood Count 7.3 K/mm3 (4.4-11.0)
[2025-03-14 16:52] LABS: AST(SGOT) 22 U/L (<=31); Alanine Aminotransfer ALT/SGPT 20 U/L (<=34); Albumin, Serum 4.2 g/dL (3.4-4.8); Alkaline Phosphatase 91 U/L (35-104); Anion Gap 12 (5-15); BUN 12 mg/dL (4-19); BUN/Creat Ratio 12.1 RATIO (10-20); Calcium,Total 10.0 mg/dL (7.6-11.0); Carbon Dioxide 25.1 mmol/L (21.0-32.0); Chloride 104 mmol/L (98-108); Globulin 2.6 g/dL (2.2-4.2); Glucose 125 mg/dL (70-99); Potassium 4.0 mmol/L (3.3-5.1)
== END | disposition home or self-care (01) ==
LOC: MTLAB 11:44
PROVIDERS: PCP Physician Assistant Medical; Referring Provider Internal Medicine Rheumatology; Visit Provider Internal Medicine Rheumatology
DX: L40.59 Other psoriatic arthropathy (principal); Z79.899 Other long term (current) drug therapy; L40.8 Other psoriasis; M79.7 Fibromyalgia
CPT/HCPCS: 36415; 80053; 85025

== ENCOUNTER → 2025-06-03 | Outpatient (CLI) | payer MEDICARE, SELFPAY ==
[2025-06-03 12:37] LABS: Hematocrit 40.7 % (37-47); Hemoglobin 13.2 g/dL (12.0-15.0); Immature Granulocytes Count 0.020 X10^3/uL (0.0-0.0); Mean Corp Hgb Conc 32.4 g/dL (32-36); Mean Corpuscular Volume 101.0 fL (81-99); Mean Platelet Vol. 11.9 fl (6.2-12.0); NRBC Flagged by Analyzer 0 % (0-5); Platelet Count 236 K/mm3 (150-450); RBC Distribution Width CV 12.7 % (11.6-14.6); RBC Distribution Width SD 47.2 fl (35.1-43.9); Red Blood Count 4.03 M/mm3 (4.2-5.4); White Blood Count 6.8 K/mm3 (4.4-11.0)
[2025-06-03 12:48] LABS: AST(SGOT) 20 U/L (<=31); Alanine Aminotransfer ALT/SGPT 15 U/L (<=34); Albumin, Serum 4.1 g/dL (3.4-4.8); Alkaline Phosphatase 76 U/L (35-104); Anion Gap 12 (5-15); BUN 8 mg/dL (4-19); BUN/Creat Ratio 12.1 RATIO (10-20); Calcium,Total 9.3 mg/dL (7.6-11.0); Carbon Dioxide 24.7 mmol/L (21.0-32.0); Chloride 106 mmol/L (98-108); Globulin 2.7 g/dL (2.2-4.2); Glucose 147 mg/dL (70-99); Potassium 3.8 mmol/L (3.3-5.1)
== END | disposition home or self-care (01) ==
LOC: MTLAB 09:27
PROVIDERS: PCP Physician Assistant Medical; Referring Provider Internal Medicine Rheumatology; Visit Provider Internal Medicine Rheumatology
DX: L40.59 Other psoriatic arthropathy (principal); Z79.899 Other long term (current) drug therapy; L40.8 Other psoriasis; M79.7 Fibromyalgia
CPT/HCPCS: 36415; 80053; 85025